=== PATIENT | female | born 1975 | race Caucasian/White ===

== ENCOUNTER 2017-01-04 10:36 | Emergency (ER) | payer OTHER ==
[~2017-01-04] VITALS: Ht 154.9 cm; Wt 56.8 kg
[~2017-01-04 10:36] MED LIST: ALBU2.5V14 NEB; CHOL100013 PO; CIPR500T PO; CIPR500T94 PO; CLON0.5T PO; CYCL10TA2 PO; FLUO10CA13 PO; HYDR-2666 PO; HYDR-971 PO; METR500T PO; ONDA4TAB12 PO; OXYC1TAB9 PO
[2017-01-04 11:17] VITALS: BP 119/95
--- NOTE | 2017-01-04 11:33 | ED.ADGEN ---
Past History Past Medical History: Anxiety, Asthma, Depression, Other Past Surgical History: Appendectomy, Hysterectomy, Other Alcohol Use: Rarely Drug Use: None Adult General Chief Complaint Chief Complaint Left low back pain HPI HPI Patient is a 42 year old female who presents with left low back pain. Patient states the pain started 2 days ago after she performs yoga. She does not recall any injury but then the pain worsened in her left lower back. Pain radiates into her left buttock, burning with urination. No fevers, no nausea or vomiting. She attempted Rufus tablets which she had on hand due to a recent pancreatitis flareup which did not resolve her symptoms. No bowel or bladder incontinence or retention. She reported some numbness in her genitals but that resolved. She reportedly was at [facility] a week ago for possible allergic reaction to Pringles Review of Systems Review of Systems Constitutional: Denies fever or chills [] Eyes: Denies change in visual acuity, redness, or eye pain [] HENT: Denies nasal congestion or sore throat [] Respiratory: Denies cough or shortness of breath [] Cardiovascular: No additional information not addressed in HPI [] GI: Denies abdominal pain, nausea, vomiting, bloody stools or diarrhea [] : History of present illness [] Musculoskeletal: Per history of present illness Integument: Denies rash or skin lesions [] Neurologic: Denies headache, focal weakness or sensory changes [] Endocrine: Denies polyuria or polydipsia [] Current Medications Current Medications Current Medications Medications (Trade) Dose Ordered Sig/Samantha Start Time Stop Time Status Last Admin Dose Admin Acetaminophen (Tylenol) 1,000 mg 1X ONCE 01/04/17 11:45 01/04/17 11:46 DC 01/04/17 11:57 1,000 MG Prednisone (Prednisone) 60 mg 1X ONCE 01/04/17 11:45 01/04/17 11:46 DC 01/04/17 11:58 60 MG Allergies Allergies Allergies Coded Allergies Type Severity Reaction Last Updated Verified NSAIDS (Non-Steroidal Anti-Inflamma Allergy Severe 09/10/14 Yes aspirin Allergy Severe 09/10/14 Yes Physical Exam Physical Exam Constitutional: Well developed, well nourished, appears uncomfortable HENT: Normocephalic, atraumatic, bilateral external ears normal, oropharynx moist, no oral exudates, nose normal. [] Eyes: PERRLA, EOMI, conjunctiva normal, no discharge. [] Neck: Normal range of motion, no tenderness, supple, no stridor. [] Cardiovascular:Heart rate regular with regulr rhythm, no murmur [] Lungs & Thorax: Bilateral breath sounds clear to auscultation, no wheeze or crackles Abdomen: Bowel sounds normal, soft, no tenderness Skin: Warm, dry, no erythema, no rash. [] Back: Nomidline tenderness,ttp over left SI joint Extremities: No tenderness, no cyanosis, no clubbing, ROM intact, no edema. [] Neurologic: Alert and oriented X 3, normal motor function, normal sensory function, no focal deficits noted. [] Psychologic: Odd Affect, gives peripheral information that seems irrelevant, judgement normal, mood normal. [] Current Patient Data Vital Signs Vital Signs Date Time Temp Pulse Resp B/P Pulse Ox O2 Delivery O2 Flow Rate FiO2 01/04/17 11:17 97.6 80 20 99 Room Air Lab Results Laboratory Tests Test 01/04/17 12:00 Urine Collection Type Unknown Urine Color Yellow Urine Clarity Clear Urine pH 6.0 Urine Specific [place] 1.025 Urine Protein Neg (NEG-TRACE) Urine Glucose (UA) Negmg/dL (NEG) Urine Ketones (Stick) Negmg/dL (NEG) Urine Blood Neg (NEG) Urine Nitrite Neg (NEG) Urine Bilirubin Neg (NEG) Urine Urobilinogen Dipstick 0.2mg/dL (0.2 mg/dL) Urine Leukocyte Esterase Neg (NEG) Urine RBC 0/HPF (0-2) Urine WBC 0/HPF (0-4) Urine Squamous Epithelial Cells Occ/LPF Urine Bacteria 0/HPF (0-FEW) EKG EKG [] Radiology/Procedures Radiology/Procedures Three-view study of the sacrum and coccyx History: Left sided sacral pain after injury last night Findings: No acute fracture or displacement or osteolytic process is seen. IMPRESSION: No acute fracture. [] Course & Med Decision Making Course & Med Decision Making Pertinent Labs and Imaging studies reviewed. (See chart for details) pt given prednisone and acetaminophen. No findings on urine or radiographs. I informed pt will treat with prednisone and lidoderm patch. f/u with pcp Final Impression Final Impression SI joint pain[] Problems: Dragon Disclaimer Dragon Disclaimer This electronic medical record was generated, in whole or in part, using a voice recognition dictation system. CRYSTAL ORDONEZ MD Jan 04, 2017 11:33
[2017-01-04] MEDS ORDERED: ACETAMINOPHEN 500 MG TABLET PO ONE (11:45)
[2017-01-04] MEDS ORDERED: PREDNISONE 20 MG TABLET PO ONE (11:45)
--- NOTE | 2017-01-04 11:56 | RAD ---
Three-view study of the sacrum and coccyx History: Left sided sacral pain after injury last night Findings: No acute fracture or displacement or osteolytic process is seen. IMPRESSION: No acute fracture.
[2017-01-04 12:38] LABS: BACTERIA,URINE 0 /HPF (0-FEW); BILIRUBIN,URINE NEG (NEG); CLARITY,URINE CLEAR; COLOR,URINE YELLOW; GLUCOSE,URINE NEG (NEG); NITRITE,URINE NEG (NEG); RBC,URINE 0 /HPF (0-2); SQUAMOUS EPITHELIAL CELL,UR OCC /LPF; UROBILINOGEN,URINE 0.2 mg/dL (0.2 mg/dL); WBC,URINE 0 /HPF (0-4)
[2017-01-04] MEDS ORDERED: LIDO700A4 TP (12:53)
[2017-01-04] MEDS ORDERED: PRED50TA PO (12:53)
[2017-01-04] MEDS ORDERED: CYCL5TAB PO (12:53)
== END 2017-01-04 12:58 | disposition home or self-care (01) ==
LOC: ER 10:36
DX: M53.3 Sacrococcygeal disorders, not elsewhere classified (principal); R30.0 Dysuria; J45.909 Unspecified asthma, uncomplicated; Z88.6 Allergy status to analgesic agent
CPT/HCPCS: 72220; 81001; 99285; J7512

== ENCOUNTER 2017-03-13 08:27 | Emergency (ER) | payer OTHER ==
[~2017-03-13] VITALS: Ht 154.9 cm; Wt 56.7 kg
[~2017-03-13 08:27] MED LIST changes: +CYCL-331 PO; -CYCL10TA2 PO; +CYCL5TAB PO; -HYDR-2666 PO; +HYDR-2758 PO; +LIDO700A4 TP; +PRED50TA PO
[2017-03-13] MEDS ORDERED: IV NORMAL SALINE 1,000ML 1,000 ML IV ONE (08:45)
[2017-03-13] MEDS ORDERED: ONDANSETRON PF 4 MG/2 ML VIAL. IV ONE (09:10)
[2017-03-13] MEDS ORDERED: DEXAMETHASONE SOD PHOS 10 MG/ML VIAL IV ONE (09:10)
[2017-03-13] MEDS ORDERED: diphenhydrAMINE 50 MG/ML VIAL IVP ONE (09:10)
[2017-03-13] MEDS ORDERED: PROMETHAZINE 25 MG/ML VIAL IV ONE ×2 (09:41→10:50)
[2017-03-13] MEDS: PROMETHAZINE 12.5 MG in IV NORMAL SALINE 50ML 50 ML IV PRN ×2 (09:43→10:52)
--- NOTE | 2017-03-13 09:56 | PHYS DOC ---
Past History Past Medical History: Asthma, Endometriosis, Migraines Past Surgical History: Appendectomy, Cholecystectomy, Hysterectomy, Oophorectomy Alcohol Use: None Drug Use: None Adult General Chief Complaint Chief Complaint: HEADACHE HPI HPI This 42-year-old lady presents with a migraine headache. She awakened with a headache this morning. The headache did not come on suddenly but gradually. She states the headache feels exactly like her migraine headaches in the past. His headache nausea and a little bit of neck discomfort. She states that she usually gets relief from ventral, Decadron, and Zofran. Review of Systems Review of Systems Constitutional: Denies fever or chills [] Eyes: Denies change in visual acuity, redness, or eye pain [] HENT: Denies nasal congestion or sore throat [] Respiratory: Denies cough or shortness of breath [] Cardiovascular: No additional information not addressed in HPI [] GI: Denies abdominal pain, nausea, vomiting, bloody stools or diarrhea [] : Denies dysuria or hematuria [] Musculoskeletal: Denies back pain or joint pain [] Integument: Denies rash or skin lesions [] Neurologic: Denies headache, focal weakness or sensory changes [] Endocrine: Denies polyuria or polydipsia [] Current Medications Current Medications Current Medications Medications (Trade) Dose Ordered Sig/Samantha Start Time Stop Time Status Last Admin Dose Admin Dexamethasone Sodium Phosphate (Decadron) 10 mg 1X ONCE 03/13/17 09:10 03/13/17 09:11 DC 03/13/17 08:57 10 MG Diphenhydramine HCl (Benadryl) 25 mg 1X ONCE 03/13/17 09:10 03/13/17 09:11 DC 03/13/17 08:58 25 MG Ondansetron HCl (Zofran) 4 mg 1X ONCE 03/13/17 09:10 03/13/17 09:11 DC 03/13/17 08:57 4 MG Promethazine HCl 12.5 mg/Sodium Chloride 50.5 ml @ 101 mls/hr PRN Q6HRS PRN 03/13/17 09:45 UNV Sodium Chloride 1,000 ml @ 1,000 mls/hr 1X ONCE 03/13/17 08:45 03/13/17 09:44 03/13/17 08:45 1,000 MLS/HR Allergies Allergies Allergies Coded Allergies Type Severity Reaction Last Updated Verified NSAIDS (Non-Steroidal Anti-Inflamma Allergy Severe 03/13/17 Yes aspirin Allergy Severe 03/13/17 Yes Physical Exam Physical Exam Constitutional: Well developed, well nourished, no acute distress, non-toxic appearance. [] HENT: Normocephalic, atraumatic, bilateral external ears normal, oropharynx moist, no oral exudates, nose normal. [] Eyes: PERRLA, EOMI, conjunctiva normal, no discharge. [] Neck: Normal range of motion, minimal tenderness in the paravertebral musculature in the neck., supple, no stridor. [] Cardiovascular:Heart rate regular rhythm, no murmur [] Lungs & Thorax: Bilateral breath sounds clear to auscultation [] Abdomen: Bowel sounds normal, soft, no tenderness, no masses, no pulsatile masses. [] Skin: Warm, dry, no erythema, no rash. [] Back: No tenderness, no CVA tenderness. [] Extremities: No tenderness, no cyanosis, no clubbing, ROM intact, no edema. [] Neurologic: Alert and oriented X 3, normal motor function, normal sensory function, no focal deficits noted. [] Psychologic: Affect normal, judgement normal, mood normal. [] Current Patient Data Vital Signs Vital Signs Date Time Temp Pulse Resp B/P (MAP) Pulse Ox O2 Delivery O2 Flow Rate FiO2 03/13/17 08:35 98.2 78 18 100 Room Air EKG EKG [] Radiology/Procedures Radiology/Procedures [] Impressions: Migraine headache Course & Med Decision Making Course & Med Decision Making Patient was given a liter of normal saline. She was given 10 of Decadron IV and 12.5 Phenergan IV Benadryl 25 mg IV and Zofran 4 mg IV she was further given another 12.5 Phenergan, she was also given Imitrex subcutaneous On this regimen she felt better and was discharged structure rest sleep and follow-up with her doctor tomorrow [] Dragon Disclaimer Dragon Disclaimer This chart was dictated in whole or in part using Voice Recognition software in a busy, high-work load, and often noisy Emergency Department environment. It may contain unintended and wholly unrecognized errors or omissions. Departure Departure: Referrals: MICHAEL SCHAEFER APRN (PCP) MACIEJ GUDINO MD Mar 13, 2017 09:56
--- NOTE | 2017-03-13 10:31 | RAD ---
CT head without contrast History: Headache, blurry vision. Comparison: 10/19/2014. Procedure: Axial images are obtained of the head from the skull base through the vertex without IV contrast. Findings: The ventricles and sulci are normal for the patient's age. No mass-effect, intracranial mass, midline shift, hemorrhage or obvious acute infarction is identified. Basilar cisterns are patent. Bone windows demonstrate no significant calvarial abnormality. The visualized paranasal sinuses appear clear. Impression: 1. No acute intracranial process. PQRS Compliance Statement: One or more of the following individualized dose reduction techniques were utilized for this examination: 1. Automated exposure control 2. Adjustment of the mA and/or kV according to patient size 3. Use of iterative reconstruction technique faint
[2017-03-13] MEDS ORDERED: PROMETHAZINE 12.5 MG in IV NORMAL SALINE 50ML 50 ML IV PRN (10:45)
[2017-03-13] MEDS ORDERED: IV NORMAL SALINE 50ML 50 ML ONE (10:50)
[2017-03-13] MEDS ORDERED: SUMAtriptan. 6 MG/0.5 ML VIAL SQ ONE (11:10)
[2017-03-13 11:25] VITALS: BP 113/78
== END 2017-03-13 11:26 | disposition home or self-care (01) ==
LOC: ER 08:27
DX: G43.909 Migraine, unspecified, not intractable, without status migrainosus (principal); J45.909 Unspecified asthma, uncomplicated; Z88.6 Allergy status to analgesic agent; Z88.8 Allergy status to other drugs, medicaments and biological substances
CPT/HCPCS: 70450; 96361; 96372; 96374; 96375; 96376; 99284; J1100; J1200; J2405; J2550; J3030; J7030

== ENCOUNTER 2017-11-24 13:49 | Emergency (ER) | payer OTHER ==
[~2017-11-24] VITALS: Ht 154.9 cm; Wt 59.9 kg
[2017-11-24] MEDS ORDERED: MORPHINE SULFATE 4 MG/ML DISP.SYRIN. IM ONE (14:30)
--- NOTE | 2017-11-24 14:35 | PHYS DOC ---
Past History Past Medical History: Asthma, Endometriosis, Migraines Past Surgical History: Appendectomy, Cholecystectomy, Hysterectomy, Oophorectomy Alcohol Use: Sober Drug Use: None Adult General Chief Complaint Chief Complaint: Neck Pain HPI HPI 42-year-old female patient complaining of left-sided neck pain since she woke up yesterday morning as a constant pain that getting worse with movements of her head. Patient denies focal neuro deficit, fever and chills, injury. Patient states she had the same pain previously. Patient states she took pain medication and Flexeril without improvement of her pain. Review of Systems Review of Systems Constitutional: Denies fever or chills [] Eyes: Denies change in visual acuity, redness, or eye pain [] HENT: Denies nasal congestion or sore throat [] Respiratory: Denies cough or shortness of breath [] Cardiovascular: No additional information not addressed in HPI [] GI: Denies abdominal pain, nausea, vomiting, bloody stools or diarrhea [] : Denies dysuria or hematuria [] Musculoskeletal: Denies back pain or joint pain [] Integument: Denies rash or skin lesions [] Neurologic: Denies headache, focal weakness or sensory changes [] Endocrine: Denies polyuria or polydipsia [] All other systems were reviewed and found to be within normal limits, except as documented in this note. Current Medications Current Medications Current Medications Medications (Trade) Dose Ordered Sig/[facility] Start Time Stop Time Status Last Admin Dose Admin Morphine Sulfate (Morphine 4mg Syringe) 4 mg 1X ONCE 11/24/17 14:30 11/24/17 14:31 UNV Allergies Allergies Allergies Coded Allergies Type Severity Reaction Last Updated Verified NSAIDS (Non-Steroidal Anti-Inflamma Allergy Severe 03/13/17 Yes aspirin Allergy Severe 03/13/17 Yes Physical Exam Physical Exam Constitutional: Well developed, well nourished,mild distress, non-toxic appearance. [] HENT: Normocephalic, atraumatic, bilateral external ears normal, oropharynx moist, no oral exudates, nose normal. [] Eyes: PERRLA, EOMI, conjunctiva normal, no discharge. [] Neck: Limited range of motion of neck because of pain, muscle spasm in the cervical area without midline tenderness Cardiovascular:Heart rate regular rhythm, no murmur [] Lungs & Thorax: Bilateral breath sounds clear to auscultation [] Skin: Warm, dry, no erythema, no rash. [] Back: No tenderness, no CVA tenderness. [] Extremities: No tenderness, no cyanosis, no clubbing, ROM intact, no edema. [] Neurologic: Alert and oriented X 3, normal motor function, normal sensory function, no focal deficits noted. [] Psychologic: Affect normal, judgement normal, mood normal. [] Current Patient Data Vital Signs Vital Signs Date Time Temp Pulse Resp B/P (MAP) Pulse Ox O2 Delivery O2 Flow Rate FiO2 11/24/17 14:23 98.0 80 18 99 Room Air EKG EKG [] Radiology/Procedures Radiology/Procedures [] Course & Med Decision Making Course & Med Decision Making Evaluation of patient in ER showed 42-year-old female patient with complaining of left-sided neck pain since yesterday without injury. Patient had history of previous cervical muscle pain. She had left cervical muscle spasm without neurovascular deficit or midline tenderness. Patient had morphine in ER and felt better. Plan discharge patient home with diagnosis of cervical myofascial strain. She instructed to apply ice on her neck and continue home Flexeril. Dragon Disclaimer Dragon Disclaimer This electronic medical record was generated, in whole or in part, using a voice recognition dictation system. Departure Departure: Impression: Primary Impression: Acute cervical myofascial strain Disposition: HOME, SELF-CARE (At 1530) Condition: IMPROVED Referrals: MICHAEL SCHAEFER APRN (PCP) Patient Instructions: Cervical Strain and Sprain with [facility] Additional Instructions: Apply ice on the affected area Follow-up with your primary care physician in 3-5 days Return to ER if not getting better Scripts Ondansetron (ZOFRAN ODT) 4 Mg Tab.rapdis 1 TAB SL Q8HRS, #15 TAB Prov: MARQUITA EUGENE MD 11/24/17 Hydrocodone Bit/Acetaminophen (NORCO 5-325 TABLET) 1 Each Tablet 1 TAB PO PRN Q6HRS Y for PAIN, #8 TAB 0 Refills Prov: MARQUITA EUGENE MD 11/24/17 MARQUITA EUGENE MD Nov 24, 2017 14:35
[2017-11-24] MEDS ORDERED: ONDANSETRON ODT 4 MG TAB.RAPDIS PO ONE (15:30)
[2017-11-24] MEDS ORDERED: HYDR-971 PO (15:32)
[2017-11-24] MEDS ORDERED: ONDA4TAB10 SL (15:32)
[2017-11-24 15:42] VITALS: BP 120/76
== END 2017-11-24 15:44 | disposition home or self-care (01) ==
LOC: ER 13:49
DX: S16.1XXA Strain of muscle, fascia and tendon at neck level, initial encounter (principal); J45.909 Unspecified asthma, uncomplicated; G43.909 Migraine, unspecified, not intractable, without status migrainosus; Z88.6 Allergy status to analgesic agent; X58.XXXA Exposure to other specified factors, initial encounter; Y93.89 Activity, other specified; Y99.8 Other external cause status; Y92.89 Other specified places as the place of occurrence of the external cause
CPT/HCPCS: 96372; 99283; J2270; Q0162

== ENCOUNTER 2017-12-22 13:58 | Emergency (ER) | payer OTHER ==
[~2017-12-22] VITALS: Ht 154.9 cm; Wt 59.0 kg
[~2017-12-22 13:58] MED LIST changes: +ONDA4TAB10 SL
[2017-12-22] MEDS ORDERED: IV NORMAL SALINE 1,000ML 1,000 ML IV SCH (14:30)
[2017-12-22] MEDS ORDERED: FAMOTIDINE 20 MG/2 ML VIAL IVP ONE (14:30)
[2017-12-22] MEDS ORDERED: HYDROcodone/APAP 5/325MG 1 TAB TABLET PO ONE (15:15)
[2017-12-22 15:41] VITALS: BP 123/82
[2017-12-22] MEDS ORDERED: HYDR25TA PO (15:41)
--- NOTE | 2017-12-22 15:42 | PHYS DOC ---
Past History Past Medical History: Asthma, Endometriosis, Migraines Past Surgical History: Appendectomy, Cholecystectomy, Hysterectomy, Oophorectomy Alcohol Use: Sober Drug Use: None Adult General Chief Complaint Chief Complaint: allergic reaction HPI HPI 42-year-old female patient with history of anxiety and previous episodes of allergic reaction and states she ate at [employer] and felt facial itching and shortness of breath and throat swelling like her previous episodes of allergic reaction. Patient states on her way to come to the hospital she had to push hard on break avoid of accessory fifth pain in the back of her head because of history of previous neck pain. Patient states she has appointment with physician in 4 days for her chronic pain. Patient denies focal neuro deficit, fever and chills, nausea vomiting, chest pain, cough and congestion, rash. Patient states she had history of anxiety and episodes of previous panic attack. Review of Systems Review of Systems Constitutional: Denies fever or chills [] Eyes: Denies change in visual acuity, redness, or eye pain [] HENT: Denies nasal congestion or sore throat [] Respiratory: Denies cough , reports shortness of breath [] Cardiovascular: No additional information not addressed in HPI [] GI: Denies abdominal pain, nausea, vomiting, bloody stools or diarrhea [] : Denies dysuria or hematuria [] Musculoskeletal: Denies back pain or joint pain, reports neck pain] Integument: Denies rash or skin lesions , reports itching[] Neurologic: Denies headache, focal weakness or sensory changes [] Endocrine: Denies polyuria or polydipsia [] All other systems were reviewed and found to be within normal limits, except as documented in this note. Current Medications Current Medications Current Medications Medications (Trade) Dose Ordered Sig/Samantha Start Time Stop Time Status Last Admin Dose Admin Acetaminophen/ Hydrocodone Bitart (Lortab 5/325) 1 tab 1X ONCE 12/22/17 15:15 12/22/17 15:16 DC Famotidine (Pepcid Vial) 20 mg 1X ONCE 12/22/17 14:30 12/22/17 14:31 DC 12/22/17 14:44 20 MG Sodium Chloride 1,000 ml @ 1,000 mls/hr Q1H 12/22/17 14:30 12/22/17 15:29 DC 12/22/17 14:44 1,000 MLS/HR Allergies Allergies Allergies Coded Allergies Type Severity Reaction Last Updated Verified NSAIDS (Non-Steroidal Anti-Inflamma Allergy Severe 03/13/17 Yes aspirin Allergy Severe 03/13/17 Yes Physical Exam Physical Exam Constitutional: Well nourished, mild distress, non-toxic appearance. [] HENT: Normocephalic, atraumatic, bilateral external ears normal, oropharynx moist, no oral exudates, nose normal. [] Eyes: PERRLA, EOMI, conjunctiva normal, no discharge. [] Neck: Normal range of motion, no tenderness, supple, no stridor. [] Cardiovascular:Heart rate regular rhythm, no murmur [] Lungs & Thorax: Bilateral breath sounds clear to auscultation [] Abdomen: Bowel sounds normal, soft, no tenderness, no masses, no pulsatile masses. [] Skin: Warm, dry, no erythema, no rash. [] Back: No tenderness, no CVA tenderness. [] Extremities: No tenderness, no cyanosis, no clubbing, ROM intact, no edema. [] Neurologic: Alert and oriented X 3, normal motor function, normal sensory function, no focal deficits noted. [] Psychologic: Anxious, judgement normal, mood normal. [] Current Patient Data Vital Signs Vital Signs Date Time Temp Pulse Resp B/P (MAP) Pulse Ox O2 Delivery O2 Flow Rate FiO2 12/22/17 14:12 98.5 102 22 99 Room Air EKG EKG [] Radiology/Procedures Radiology/Procedures [] Course & Med Decision Making Course & Med Decision Making Evaluation of patient in ER showed 42-year-old female patient with history of anxiety complaining of allergic reaction after eating new food. She did not have rash or respiratory distress or hypoxia or swelling of tongue or throat. Patient treated with IV fluid and Pepcid and asking for pain medication regarding her chronic neck pain. Patient treated with 1 dose of [place] and instructed to follow with her primary care physician as a scheduled in 4 days. Dragon Disclaimer Dragon Disclaimer This electronic medical record was generated, in whole or in part, using a voice recognition dictation system. Departure Departure: Impression: Primary Impression: Itching Additional Impressions: Anxiety Chronic cervical pain Disposition: HOME, SELF-CARE (At 1536) Condition: STABLE Referrals: MICHAEL SCHAEFER APRN (PCP) Patient Instructions: Anxiety and Panic Attacks, Itching-Brief, Soft Tissue Injury of the Neck Additional Instructions: Drink plenty of liquids Follow-up with your primary care physician in 3-5 days Return to ER if not getting better Scripts Hydroxyzine Hcl (HYDROXYZINE HCL) 25 Mg Tablet 1 TAB PO TID, #12 TAB Prov: MARQUITA EUGENE MD 12/22/17 Problem Qualifiers MARQUITA EUGENE MD Dec 22, 2017 15:42
== END 2017-12-22 15:51 | disposition home or self-care (01) ==
LOC: ER 13:58
DX: L29.9 Pruritus, unspecified (principal); F41.9 Anxiety disorder, unspecified; G89.29 Other chronic pain; G43.909 Migraine, unspecified, not intractable, without status migrainosus; J45.909 Unspecified asthma, uncomplicated; Z88.6 Allergy status to analgesic agent
CPT/HCPCS: 96361; 96374; 99284; S0028; J7030

== ENCOUNTER 2018-03-03 20:59 | Inpatient (IN) | payer OTHER ==
[~2018-03-03] VITALS: Ht 154.9 cm; Wt 65.8 kg
[~2018-03-03 20:59] MED LIST changes: +HYDR25TA PO; +OXYC-411 PO; -OXYC1TAB9 PO
--- NOTE | 2018-03-03 21:08 | ED.ADGEN ---
Past History Past Medical History: Asthma, Endometriosis, Migraines Past Surgical History: Appendectomy, Cholecystectomy, Hysterectomy, Oophorectomy Alcohol Use: Sober Drug Use: None Adult General Chief Complaint Chief Complaint ".. I get migraines.. but this one seems different ... its a 06/04... it been going on 3 days...".." I ve gotten bad migraines before.. I ve had CT's, MRI, Spinal taps... but noting was ever found.. I was why the [employer] .. probably retired me... " HPI HPI Patient is a 43 year old female who presents with above hx and complaints of generalized migraine like headache the last three days.. No travel or specific ill contacts. No fever or chills. No hx of trauma. Pt. normally follows at [facility]. Pt. reports some nausea. Pt. report s no pattern to prior migraine headaches. Pt. rates headache as 06/04. Home meds have not helped. Review of Systems Review of Systems Constitutional: Denies fever or chills [] Eyes: Denies change in visual acuity, redness, or eye pain [] HENT: Denies nasal congestion or sore throat [] Respiratory: Denies cough or shortness of breath [] Cardiovascular: No additional information not addressed in HPI [] GI: Denies abdominal pain, nausea, vomiting, bloody stools or diarrhea [] : Denies dysuria or hematuria [] Musculoskeletal: Denies back pain or joint pain [] Integument: Denies rash or skin lesions [] Neurologic: Complains of headache. Denies, focal weakness or sensory changes [] Endocrine: Denies polyuria or polydipsia [] All other systems were reviewed and found to be within normal limits, except as documented in this note. Family History Family History Non-contributory Current Medications Current Medications Current Medications Medications (Trade) Dose Ordered Sig/Samantha Start Time Stop Time Status Last Admin Dose Admin Diphenhydramine HCl (Benadryl) 50 mg 1X ONCE 03/03/18 22:30 03/03/18 22:33 DC 03/03/18 23:35 50 MG Lactated Ringer's 1,000 ml @ 1,000 mls/hr 1X ONCE 03/03/18 21:30 03/03/18 22:29 DC 03/03/18 22:24 1,000 MLS/HR Lorazepam (Ativan) 2 mg 1X ONCE 03/03/18 23:00 03/03/18 23:01 DC 03/03/18 23:35 2 MG Morphine Sulfate (Morphine 2mg Syringe) 2 mg 1X ONCE 03/03/18 23:15 03/03/18 23:17 DC Morphine Sulfate (Morphine 4mg Syringe) 2 mg PRN Q2HR PRN 03/04/18 01:00 03/05/18 00:59 03/04/18 01:05 2 MG Ondansetron HCl (Zofran Odt) 8 mg 1X ONCE 03/03/18 21:30 03/03/18 21:54 DC 03/03/18 22:24 8 MG Sodium Chloride 50 ml @ As Directed STK-MED ONCE 03/03/18 22:14 03/03/18 22:15 DC Sumatriptan Succinate (Imitrex) 6 mg 1X ONCE 03/03/18 21:30 03/03/18 21:54 DC 03/03/18 22:24 6 MG Valproic Acid (Depacon) 500 mg STK-MED ONCE 03/03/18 22:15 03/03/18 22:16 DC Valproic Acid 500 mg/Sodium Chloride 55 ml @ 55 mls/hr Q8HRS 03/04/18 06:00 See Nursing for home meds Allergies Allergies Allergies Coded Allergies Type Severity Reaction Last Updated Verified NSAIDS (Non-Steroidal Anti-Inflamma Allergy Severe 03/13/17 Yes aspirin Allergy Severe 03/13/17 Yes metoclopramide Allergy Mild anxiety 03/03/18 Yes prochlorperazine Allergy Mild anxiety 03/03/18 Yes Physical Exam Physical Exam Constitutional: , Moderately acute distress, non-toxic appearance. [] HENT: Normocephalic, atraumatic, bilateral external ears normal, oropharynx moist, no oral exudates, nose normal. []No temporal artery tenderness. Eyes: PERRLA, EOMI, conjunctiva normal, no discharge. [] No appreciable field deficits. Fundus benign. Neck: Normal range of motion, no tenderness, supple, no stridor. [] Cardiovascular: Bradycardia Heart rate regular rhythm, no murmur [] Lungs & Thorax: Bilateral breath sounds equal with scattered wheezes on auscultation [] Abdomen: Bowel sounds normal, soft, no tenderness, no masses, no pulsatile masses. Multiple abdomen scars. Skin: Warm, dry, no erythema, no rash. [] Back: No tenderness, no CVA tenderness. [] Extremities: No tenderness, no cyanosis, no clubbing, ROM intact, no edema. [] Neurologic: Alert and oriented X 3, normal motor function, normal sensory function, no focal deficits noted. []DTRs +2 at patella and brachial. Distal vibratory 128 intact. Wellness Manager equal. No drift. Psychologic: Affect anxious, judgement normal, mood depressed. Current Patient Data Vital Signs Vital Signs Date Time Temp Pulse Resp B/P (MAP) Pulse Ox O2 Delivery O2 Flow Rate FiO2 03/03/18 21:00 97.7 90 18 100 Room Air Lab Results Laboratory Tests Test 03/03/18 21:55 03/03/18 22:16 03/03/18 23:14 White Blood Count 6.1 x10^3/uL (4.0-11.0) Red Blood Count 4.02 x10^6/uL (3.50-5.40) Hemoglobin 12.4 g/dL (12.0-15.5) Hematocrit 37.3 % (36.0-47.0) Mean Corpuscular Volume 93 fL (79-100) Mean Corpuscular Hemoglobin 31 pg (25-35) Mean Corpuscular Hemoglobin Concent 33 g/dL (31-37) Red Cell Distribution Width 13.4 % (11.5-14.5) Platelet Count 274 x10^3/uL (140-400) Neutrophils (%) (Auto) 75 % (31-73) H Lymphocytes (%) (Auto) 16 % (24-48) L Monocytes (%) (Auto) 8 % (0-9) Eosinophils (%) (Auto) 1 % (0-3) Basophils (%) (Auto) 1 % (0-3) Neutrophils # (Auto) 4.5 x10^3uL (1.8-7.7) Lymphocytes # (Auto) 1.0 x10^3/uL (1.0-4.8) Monocytes # (Auto) 0.5 x10^3/uL (0.0-1.1) Eosinophils # (Auto) 0.1 x10^3/uL (0.0-0.7) Basophils # (Auto) 0.0 x10^3/uL (0.0-0.2) Erythrocyte Sedimentation Rate 24 (0-25) Prothrombin Time 9.3 SEC (9.4-11.4) L Prothrombin Time INR 0.9 (0.9-1.1) PTT 22 SEC (23-33) L Sodium Level 141 mmol/L (136-145) Potassium Level 3.9 mmol/L (3.5-5.1) Chloride Level 104 mmol/L (98-107) Carbon Dioxide Level 27 mmol/L (21-32) Anion Gap 10 (6-14) Blood Urea Nitrogen 11 mg/dL (7-20) Creatinine 0.7 mg/dL (0.6-1.0) Estimated GFR (Cockcroft-Gault) 91.8 Glucose Level 108 mg/dL (70-99) H Calcium Level 8.5 mg/dL (8.5-10.1) Magnesium Level 2.1 mg/dL (1.8-2.4) Creatine Kinase 43 U/L (26-192) Creatine Kinase MB (Mass) < 0.5 ng/mL (0.0-3.6) Creatine Kinase MB Relative Index 1.2 % (0-4) Troponin I Quantitative < 0.017 ng/mL (0-0.055) Urine Collection Type Unknown Urine Color Yellow Urine Clarity Clear Urine pH 6.5 Urine Specific [place] 1.010 Urine Protein Neg (NEG-TRACE) Urine Glucose (UA) Neg mg/dL (NEG) Urine Ketones (Stick) Neg mg/dL (NEG) Urine Blood Neg (NEG) Urine Nitrite Neg (NEG) Urine Bilirubin Neg (NEG) Urine Urobilinogen Dipstick 0.2 mg/dL (0.2 mg/dL) Urine Leukocyte Esterase Trace (NEG) Urine RBC 0 /HPF (0-2) Urine WBC Occ /HPF (0-4) Urine Squamous Epithelial Cells Occ /LPF Urine Bacteria 0 /HPF (0-FEW) Urine Opiates Screen Neg (NEG) Urine Methadone Screen Neg (NEG) Urine Barbiturates Neg (NEG) Urine Phencyclidine Screen Neg (NEG) Urine Amphetamine/Methamphetamine Neg (NEG) Urine Benzodiazepines Screen Neg (NEG) Urine Cocaine Screen Neg (NEG) Urine Cannabinoids Screen Neg (NEG) Urine Ethyl Alcohol Neg (NEG) POC Troponin I 0.00 ng/ml (<0.08) EKG EKG My interpretation of EKG shows sinus rate of 68 no acute morphology. [] Radiology/Procedures Radiology/Procedures My interpretation of CT of head shows no shift, mass, edema, bleed, or fracture. [] Course & Med Decision Making Course & Med Decision Making Pertinent Labs and Imaging studies reviewed. (See chart for details). Discussed presentation, testing and tx plan with Dr. Marina. Admit with Neuro and Cardiology consults. After patient received Imitrex 6 mg subcutaneous and started on valproic acid complaints of chest pain that radiated to her jaw.- EKG ordered and Trop's Pt. still some angina like complaints. Lt neck and chest at 0040 min. Will admit for cardiac eval. [] Final Impression Final Impression 1. Hx. Migraines[] 2. HTN 3. CP - with Imitrex 4. Anxiety Dragon Disclaimer Dragon Disclaimer This electronic medical record was generated, in whole or in part, using a voice recognition dictation system. GRISEL LIPSCOMB MD Mar 03, 2018 21:07
[2018-03-03] MEDS ORDERED: SUMAtriptan SUCC 6 MG/0.5 ML VIAL SQ ONE (21:30)
[2018-03-03] MEDS ORDERED: IV RINGERS SOLUTION,LACTATED 1,000 ML IV ONE (21:30)
[2018-03-03] MEDS ORDERED: ONDANSETRON ODT 4 MG TAB.RAPDIS PO ONE (21:30)
[2018-03-03] MEDS ORDERED: VALPROATE SODIUM 500 MG in IV NORMAL SALINE 50ML 50 ML IV ONE (22:00)
[2018-03-03] MEDS ORDERED: VALPROATE SODIUM 500 MG in IV NORMAL SALINE 50ML 50 ML IV SCH (22:00)
[2018-03-03] MEDS ORDERED: IV NORMAL SALINE 50ML 50 ML ONE (22:14)
[2018-03-03] MEDS ORDERED: VALPROATE SODIUM 500 MG/5 ML VIAL IV ONE (22:15)
[2018-03-03 22:19] LABS: BASO % 1 % (0-3); EOS # 0.1 x10^3/uL (0.0-0.7); EOS % 1 % (0-3); HEMATOCRIT 37.3 % (36.0-47.0); HEMOGLOBIN 12.4 g/dL (12.0-15.5); LYMPH % 16 % (24-48); MEAN CORPUSCULAR HEMOGLOBIN 31 pg (25-35); MEAN CORPUSCULAR HGB CONC 33 g/dL (31-37); MEAN CORPUSCULAR VOLUME 93 fL (79-100); MONO # 0.5 x10^3/uL (0.0-1.1); MONO % 8 % (0-9); NEUT # 4.5 x10^3uL (1.8-7.7); NEUT % 75 % (31-73); PLATELET COUNT 274 x10^3/uL (140-400); RED BLOOD COUNT 4.02 x10^6/uL (3.50-5.40); RED CELL DISTRIBUTION WIDTH 13.4 % (11.5-14.5); WHITE BLOOD COUNT 6.1 x10^3/uL (4.0-11.0)
[2018-03-03 22:23] LABS: CALCIUM 8.5 mg/dL (8.5-10.1); CREATININE 0.7 mg/dL (0.6-1.0); GFR 91.8; MAGNESIUM 2.1 mg/dL (1.8-2.4); POTASSIUM 3.9 mmol/L (3.5-5.1)
--- NOTE | 2018-03-03 22:23 | RAD ---
CT HEAD WO CONTRAST Indication: Headache x3 days. No prior injury or surgery Exposure: One or more of the following individualized dose reduction techniques were utilized for this examination: 1. Automated exposure control 2. Adjustment of the mA and/or kV according to patient size 3. Use of iterative reconstruction technique. Comparison: None are available. Contrast: None FINDINGS: Posterior fossa is unremarkable. No evidence of acute intracranial hemorrhage or abnormal extra-axial fluid collection. No evidence of mass effect or midline shift. Ventricles are symmetric in size and configuration. Reese-white matter distinction is intact. Visualized orbits are unremarkable. Visualized paranasal sinuses and mastoids are clear. No acute calvarial abnormality. Impression: No acute intracranial hemorrhage or mass effect Electronically signed by: Lewis Almonte MD (03/03/2018 10:20 PM) [facility]
[2018-03-03] MEDS ORDERED: diphenhydrAMINE 50 MG/ML VIAL IVP ONE (22:30)
[2018-03-03 22:42] LABS: AMPHETAMINE/METHAMPHETAMINE NEG (NEG); BARBITURATES NEG (NEG); BENZODIAZEPINES NEG (NEG); CANNABINOIDS NEG (NEG); COCAINE NEG (NEG); METHADONE NEG (NEG); OPIATES NEG (NEG); PHENCYCLIDINE NEG (NEG)
[2018-03-03 22:45] LABS: BACTERIA,URINE 0 /HPF (0-FEW); BILIRUBIN,URINE NEG (NEG); CLARITY,URINE CLEAR; COLOR,URINE YELLOW; GLUCOSE,URINE NEG (NEG); NITRITE,URINE NEG (NEG); RBC,URINE 0 /HPF (0-2); SQUAMOUS EPITHELIAL CELL,UR OCC /LPF; UROBILINOGEN,URINE 0.2 mg/dL (0.2 mg/dL); WBC,URINE OCC /HPF (0-4)
[2018-03-03] MEDS ORDERED: LORazepam 2 MG/ML VIAL IV ONE (23:00)
[2018-03-03] MEDS ORDERED: MORPHINE SULFATE 2 MG/ML DISP.SYRIN. IV ONE (23:15)
--- NOTE | 2018-03-03 23:22 | EKG ---
[address] [address] Test Date: 2018-03-03 Test Time: 23:11:01 Pat Name: ABIDA CHINCHILLA Department: Room: Gender: F Web Design Intern: JANE : 1975 Requested By: GRISEL LIPSCOMB Order Number: [id number] Reading MD: Measurements Intervals [place] Rate: 68 P: 42 OR: 158 QRS: 45 QRSD: 86 T: 57 QT: 368 QTc: 396 Interpretive Statements SINUS RHYTHM NO SPECIFIC ECG ABNORMALITIES RI6.01 No previous ECG available for comparison
[2018-03-03 23:34] LABS: SEDIMENTATION RATE 24 (0-25)
[2018-03-03] MEDS: VALPROATE SODIUM 500 MG in IV NORMAL SALINE 50ML 50 ML IV SCH (23:38)
[2018-03-03] MEDS ORDERED: MORPHINE SULFATE 4 MG/ML DISP.SYRIN. IV ONE (23:45)
[2018-03-03] MEDS ORDERED: MORPHINE SULFATE 4 MG/ML DISP.SYRIN. ONE (23:49)
[2018-03-04] MEDS: MORPHINE SULFATE 4 MG/ML DISP.SYRIN. IV PRN ×9 (01:05→23:21)
[2018-03-04 02:15] VITALS: BP 145/92
--- NOTE | 2018-03-04 02:20 | NUR ---
Pt was admitted from ER to [address] [place] [address] via [facility], accompanied by EMS & nursing staff. Pt self transferred from [facility] to bed independently, steady gait noted. Admission assessment completed. VSS. Pt placed on Telemetry, SR noted on monitor. Pt here for migraine/headache and chest pain. Pt stated that pain different for her normal headaches that she gets, rating it a 8/10. Pt states that pain starts in the base of her neck and radiates up to the top of her head. Pt was receiving Depacon IV for her headache in the ER when she developed chest pain. Pt has hx of anxiety, which "did not help the situation." Health history and home medications reviewed with pt. SCDs for VTE. Pt UTD on pneumonia vaccine. Cardio & Neuro consulted. Pt lives at home with and 2 daughters. Pt was given written information regarding hospital policies, unit procedures and contact persons. Valuables were checked and left at bedside. Call light within reach.
[2018-03-04] MEDS ORDERED: POLY17PO5 PO (04:41)
[2018-03-04] MEDS ORDERED: ALBU8.5H8 INH (04:41)
[2018-03-04] MEDS ORDERED: CLON1TAB PO (04:41)
[2018-03-04] MEDS ORDERED: [UNRECOGNIZED DRUG - CODE] PO (04:41)
[2018-03-04] MEDS ORDERED: FLUO40CA9 PO (04:41)
[2018-03-04] MEDS ORDERED: PROM25TA10 PO (04:41)
[2018-03-04] MEDS ORDERED: GABA-585 PO (04:55)
[2018-03-04 05:40] VITALS: BP 114/77
[2018-03-04 07:15] LABS: BASO % 0 % (0-3); EOS % 0 % (0-3); HEMATOCRIT 36.3 % (36.0-47.0); HEMOGLOBIN 12.3 g/dL (12.0-15.5); LYMPH # 0.7 x10^3/uL (1.0-4.8); LYMPH % 7 % (24-48); MEAN CORPUSCULAR HEMOGLOBIN 31 pg (25-35); MEAN CORPUSCULAR HGB CONC 34 g/dL (31-37); MEAN CORPUSCULAR VOLUME 91 fL (79-100); MONO # 0.6 x10^3/uL (0.0-1.1); MONO % 6 % (0-9); NEUT # 8.9 x10^3uL (1.8-7.7); NEUT % 87 % (31-73); PLATELET COUNT 292 x10^3/uL (140-400); RED BLOOD COUNT 4.01 x10^6/uL (3.50-5.40); RED CELL DISTRIBUTION WIDTH 13.3 % (11.5-14.5); WHITE BLOOD COUNT 10.2 x10^3/uL (4.0-11.0)
[2018-03-04 07:25] LABS: CREATININE 0.7 mg/dL (0.6-1.0); GFR 91.8; POTASSIUM 4.4 mmol/L (3.5-5.1)
[2018-03-04 08:26] LABS: % LYMPHS 7 % (24-48); % METAS 1 % (0-0); % MONOS 2 % (0-10); % SEGS 90 % (35-66); TOXIC GRANULATION SLIGHT
[2018-03-04 08:27] LABS: PLT ESTIMATE ADEQUATE (ADEQUATE); POLYCHROMASIA SLIGHT
[2018-03-04 11:30] VITALS: BP 103/67
[2018-03-04] MEDS ORDERED: ALBUTEROL SULFATE 8GM INHALER. INH PRN (14:00)
[2018-03-04] MEDS: VALPROATE SODIUM 500 MG in IV NORMAL SALINE 50ML 50 ML IV SCH ×2 (14:00→20:28)
--- NOTE | 2018-03-04 14:05 | NUR ---
Nursing Note: Maty held this afternoon per Dr. Marina.
[2018-03-04] MEDS ORDERED: tiZANidine 4 MG TABLET. PO PRN (14:15)
[2018-03-04] MEDS ORDERED: ALBUTEROL SULFATE 2.5 MG/3 ML NEBU. NEB PRN (14:15)
[2018-03-04] MEDS: GABAPENTIN 100 MG CAPSULE. PO SCH ×2 (14:26→20:24)
[2018-03-04] MEDS: clonazePAM 1 MG TABLET PO SCH ×2 (14:26→20:23)
[2018-03-04] MEDS: BUTALB/APAP/CAFEIN 50/325/40MG TABLET. PO PRN (14:26)
[2018-03-04] MEDS: diphenhydrAMINE 50 MG/ML VIAL IVP PRN ×2 (14:27→20:24)
[2018-03-04 15:31] VITALS: BP 122/80
[2018-03-04 19:44] VITALS: BP 107/71
[2018-03-04 23:14] VITALS: BP 110/75
--- NOTE | 2018-03-05 00:57 | HP ---
ADMIT DATE: 03/04/2018 HISTORY OF PRESENT ILLNESS: The patient is a 43-year-old female patient, who came to the Emergency Room complaining of severe migraine that she rated about 9/10. This started about 3 days ago. She stated that she has had CT scan, MRI, and spinal taps, nothing was ever found. She retired from the [employer] and apparently started having her migraine headache since 2005 after she had her hysterectomy and what precipitated her migraine is high atmospheric pressure ____ according to her and her episodes are difficult to predict. She has been responding before to multiple modalities of treatment. Apparently, last night she was given Imitrex 6 mg subcutaneous and also was started on Depakote. She developed severe chest pain that radiated to her jaw and was admitted to rule out the possibility of myocardial infarction. PAST MEDICAL HISTORY: Significant for migraine headache as well as bronchial asthma. She has also a history of endometriosis. PAST SURGICAL HISTORY: Significant for tubal ligation, hemorrhoidectomy, cholecystectomy, breast augmentation, appendectomy, total abdominal hysterectomy and bilateral salpingo-oophorectomy as well as hemorrhoidectomy. ALLERGIES: She stated that she has severe allergy to all nonsteroidals and developed anaphylactic shock to aspirin and to all nonsteroidals. She is also allergic or intolerant to Compazine and Reglan. MEDICATIONS: She is currently on following medications: She is on promethazine 25 mg every 8 hours, tizanidine 2 mg every 8 hours, clonazepam 1 mg 3 times a day, gabapentin 200 mg 3 times a day and Prozac 40 mg once a day. She is also on polyethylene glycol 17 grams daily p.r.n. for constipation and albuterol sulfate for ProAir 1 puff every 6 hours. FAMILY HISTORY: She has one sister, who is younger and seemingly healthy. Her father is alive at the age of 74 and healthy. Mother is alive at the age of 68 and known to have breast cancer, congestive heart failure, hypertension. SOCIAL HISTORY: She is , has 2 daughters. She quit smoking on 05/19/1995. Quit drinking alcohol 6 months ago. She used to be a heavy alcohol drinker. She apparently has retired from the [employer]. PHYSICAL EXAMINATION: GENERAL: On examining her, she looked well and was clearly in no apparent respiratory distress. No pallor, jaundice or cyanosis. No lymphadenopathy, no thyromegaly. No jugular venous distension. No lower limb edema. VITAL SIGNS: Her heart rate was 70, blood pressure was 145/92, temperature was 98, respiratory rate was 16, and oxygen saturation was 97%. HEAD, EYES, EARS, NOSE and THROAT: Showed normocephalic, atraumatic. HEART: Showed normal first and second heart sounds with no gallop, rub or murmur. CHEST: Clear to auscultation. No crepitation or rhonchi. ABDOMEN: Distended, soft, nontender. NEUROLOGIC: She is awake, alert, responding appropriately. She has definitely no evidence of neck rigidity. All her cranial nerves are intact. EXTREMITIES: She moves her extremities without difficulty. LABORATORY DATA: While in the Emergency Room, she has had lab work done, it showed a white cell count of 6000, hemoglobin 12, hematocrit 37, MCV 93, and platelet count of 274,000. Her sed rate was 24 mm per hour and her serum sodium was 141, potassium 3.9, chloride 104, bicarbonate 27, anion gap of 10, BUN 11, creatinine was 0.7, estimated GFR was 92 mL per minute. Her glucose 108, calcium was 8.5, magnesium was 2.1. Her first set of cardiac enzyme was normal. Her prothrombin time was 9.3, INR 0.9, aPTT was 22. Urinalysis was essentially unremarkable and toxic screen was negative. She did have a CT scan of the head, which basically showed posterior fossa is unremarkable. No evidence of acute intracranial hemorrhage or abnormal extraaxial fluid collection, no evidence of mass effect or midline shift. Ventricles are symmetric in size and configuration. Reese and white matter distinction is intact. Visualized orbits are unremarkable. Visualized paranasal sinuses and mastoid air cells are clear. No acute calvarial abnormality. ASSESSMENT AND PLAN: So basically this is a 43-year-old female patient, who came in with acute migraine headache that so far has not responded. She developed severe chest pain when after finishing her Imitrex and valproic acid was started, so she was admitted to rule out myocardial infarction and we will do 2 more sets of cardiac enzyme and consult the cardiology team as well as the neurologist to assist with her management. EDDI VALERA MD DR: FAITH/celena JOB#: [id number] / [id number]
[2018-03-05] MEDS: diphenhydrAMINE 50 MG/ML VIAL IVP PRN ×3 (03:13→20:10)
[2018-03-05] MEDS: MORPHINE SULFATE 4 MG/ML DISP.SYRIN. IV PRN ×6 (03:14→22:54)
[2018-03-05 05:13] VITALS: BP 102/67
[2018-03-05] MEDS: VALPROATE SODIUM 500 MG in IV NORMAL SALINE 50ML 50 ML IV SCH (05:15)
[2018-03-05 06:44] LABS: HEMATOCRIT 36.1 % (36.0-47.0); HEMOGLOBIN 12.2 g/dL (12.0-15.5); RED BLOOD COUNT 3.91 x10^6/uL (3.50-5.40); RED CELL DISTRIBUTION WIDTH 13.4 % (11.5-14.5); WHITE BLOOD COUNT 5.3 x10^3/uL (4.0-11.0)
[2018-03-05 06:59] LABS: ALBUMIN 3.7 g/dL (3.4-5.0); ALBUMIN/GLOBULIN RATIO 1.1 (1.0-1.7); CALCIUM 8.8 mg/dL (8.5-10.1); CREATININE 0.8 mg/dL (0.6-1.0); GFR 78.7; TOTAL BILIRUBIN 0.3 mg/dL (0.2-1.0)
[2018-03-05 07:05] LABS: POTASSIUM 4.1 mmol/L (3.5-5.1)
[2018-03-05] MEDS ORDERED: POLYETHYLENE GLYCOL 3350 17 GM PACKET. PO PRN (09:00)
[2018-03-05] MEDS: GABAPENTIN 100 MG CAPSULE. PO SCH ×3 (09:04→20:09)
[2018-03-05] MEDS: clonazePAM 1 MG TABLET PO SCH ×3 (09:04→20:09)
[2018-03-05] MEDS: FLUoxetine HCL 20 MG CAPSULE PO SCH (09:04)
--- NOTE | 2018-03-05 09:34 | PDOC ---
PROGRESS NOTES Diagnosis Problem Problems Medical Problems: (1) Anxiety Status: Acute (2) Chest pain Status: Acute (3) Head ache Status: Acute Assessment Problems Medical Problems: (1) Anxiety Status: Acute (2) Chest pain Status: Acute (3) Head ache Status: Acute 1. Chest pain - PA ruled out, no acute EKG changes. No ASA secondary to allergy. No beta judit at this time as blood pressure is borderline. Echo pending. Check lipids. Outpatient MPI. 2. Accelerated hypertension - likely secondary to pain. Await echo. 3. Migranes - per PCP, Neuro Subjective c/o headache, right chest and neck pain. no dyspnea, no lightheadedness or syncope Objective Vital Signs Date Time Temp Pulse Resp B/P (MAP) Pulse Ox O2 Delivery O2 Flow Rate FiO2 03/05/18 08:17 98 Room Air 03/05/18 05:13 97.7 67 18 102/67 (79) Intake and Output 03/05/18 07:00 Intake Total 700 ml Output Total 1350 ml Balance -650 ml Intake Oral 700 ml Output Urine Total 1350 ml # Voids 2 Abdomen: Normal bowel sounds, Soft, No tenderness Heart: Regular rate, Normal S1, Normal S2 Extremities: No cyanosis, No edema, Normal pulses General: Alert, Oriented X3, Cooperative, mild distress Lungs: Clear to auscultation, Normal air movement Neuro: Normal speech Psych/Mental Status: Mental status NL, Mood NL Review of Relevant I have reviewed the following items leif (where applicable) has been applied. Labs Laboratory Tests Test 03/03/18 21:55 03/03/18 22:16 03/03/18 23:14 03/04/18 06:30 White Blood Count 6.1 x10^3/uL (4.0-11.0) 10.2 x10^3/uL (4.0-11.0) Red Blood Count 4.02 x10^6/uL (3.50-5.40) 4.01 x10^6/uL (3.50-5.40) Hemoglobin 12.4 g/dL (12.0-15.5) 12.3 g/dL (12.0-15.5) Hematocrit 37.3 % (36.0-47.0) 36.3 % (36.0-47.0) Mean Corpuscular Volume 93 fL (79-100) 91 fL (79-100) Mean Corpuscular Hemoglobin 31 pg (25-35) 31 pg (25-35) Mean Corpuscular Hemoglobin Concent 33 g/dL (31-37) 34 g/dL (31-37) Red Cell Distribution Width 13.4 % (11.5-14.5) 13.3 % (11.5-14.5) Platelet Count 274 x10^3/uL (140-400) 292 x10^3/uL (140-400) Neutrophils (%) (Auto) 75 % (31-73) 87 % (31-73) Lymphocytes (%) (Auto) 16 % (24-48) 7 % (24-48) Monocytes (%) (Auto) 8 % (0-9) 6 % (0-9) Eosinophils (%) (Auto) 1 % (0-3) 0 % (0-3) Basophils (%) (Auto) 1 % (0-3) 0 % (0-3) Neutrophils # (Auto) 4.5 x10^3uL (1.8-7.7) 8.9 x10^3uL (1.8-7.7) Lymphocytes # (Auto) 1.0 x10^3/uL (1.0-4.8) 0.7 x10^3/uL (1.0-4.8) Monocytes # (Auto) 0.5 x10^3/uL (0.0-1.1) 0.6 x10^3/uL (0.0-1.1) Eosinophils # (Auto) 0.1 x10^3/uL (0.0-0.7) 0.0 x10^3/uL (0.0-0.7) Basophils # (Auto) 0.0 x10^3/uL (0.0-0.2) 0.0 x10^3/uL (0.0-0.2) Erythrocyte Sedimentation Rate 24 (0-25) Prothrombin Time 9.3 SEC (9.4-11.4) Prothromb Time International Ratio 0.9 (0.9-1.1) Activated Partial Thromboplast Time 22 SEC (23-33) Sodium Level 141 mmol/L (136-145) 140 mmol/L (136-145) Potassium Level 3.9 mmol/L (3.5-5.1) 4.4 mmol/L (3.5-5.1) Chloride Level 104 mmol/L (98-107) 101 mmol/L (98-107) Carbon Dioxide Level 27 mmol/L (21-32) 27 mmol/L (21-32) Anion Gap 10 (6-14) 12 (6-14) Blood Urea Nitrogen 11 mg/dL (7-20) 10 mg/dL (7-20) Creatinine 0.7 mg/dL (0.6-1.0) 0.7 mg/dL (0.6-1.0) Estimated GFR (Cockcroft-Gault) 91.8 91.8 Glucose Level 108 mg/dL (70-99) 114 mg/dL (70-99) Calcium Level 8.5 mg/dL (8.5-10.1) 9.0 mg/dL (8.5-10.1) Magnesium Level 2.1 mg/dL (1.8-2.4) Creatine Kinase 43 U/L (26-192) Creatine Kinase MB (Mass) < 0.5 ng/mL (0.0-3.6) Creatine Kinase MB Relative Index 1.2 % (0-4) Troponin I Quantitative < 0.017 ng/mL (0-0.055) < 0.017 ng/mL (0-0.055) Thyroid Stimulating Hormone (TSH) 2.863 uIU/mL (0.358-3.740) Urine Collection Type Unknown Urine Color Yellow Urine Clarity Clear Urine pH 6.5 Urine Specific [place] 1.010 Urine Protein Neg (NEG-TRACE) Urine Glucose (UA) Neg mg/dL (NEG) Urine Ketones (Stick) Neg mg/dL (NEG) Urine Blood Neg (NEG) Urine Nitrite Neg (NEG) Urine Bilirubin Neg (NEG) Urine Urobilinogen Dipstick 0.2 mg/dL (0.2 mg/dL) Urine Leukocyte Esterase Trace (NEG) Urine RBC 0 /HPF (0-2) Urine WBC Occ /HPF (0-4) Urine Squamous Epithelial Cells Occ /LPF Urine Bacteria 0 /HPF (0-FEW) Urine Opiates Screen Neg (NEG) Urine Methadone Screen Neg (NEG) Urine Barbiturates Neg (NEG) Urine Phencyclidine Screen Neg (NEG) Urine Amphetamine/Methamphetamine Neg (NEG) Urine Benzodiazepines Screen Neg (NEG) Urine Cocaine Screen Neg (NEG) Urine Cannabinoids Screen Neg (NEG) Urine Ethyl Alcohol Neg (NEG) Bedside Troponin I 0.00 ng/ml (<0.08) Segmented Neutrophils % 90 % (35-66) Lymphocytes % 7 % (24-48) Monocytes % 2 % (0-10) Metamyelocytes % 1 % (0-0) Toxic Granulation Slight Platelet Estimate Adequate (ADEQUATE) Polychromasia Slight Test 03/05/18 06:22 White Blood Count 5.3 x10^3/uL (4.0-11.0) Red Blood Count 3.91 x10^6/uL (3.50-5.40) Hemoglobin 12.2 g/dL (12.0-15.5) Hematocrit 36.1 % (36.0-47.0) Mean Corpuscular Volume 92 fL (79-100) Mean Corpuscular Hemoglobin 31 pg (25-35) Mean Corpuscular Hemoglobin Concent 34 g/dL (31-37) Red Cell Distribution Width 13.4 % (11.5-14.5) Platelet Count 266 x10^3/uL (140-400) Sodium Level 140 mmol/L (136-145) Potassium Level 4.1 mmol/L (3.5-5.1) Chloride Level 101 mmol/L (98-107) Carbon Dioxide Level 32 mmol/L (21-32) Anion Gap 7 (6-14) Blood Urea Nitrogen 15 mg/dL (7-20) Creatinine 0.8 mg/dL (0.6-1.0) Estimated GFR (Cockcroft-Gault) 78.7 BUN/Creatinine Ratio 19 (6-20) Glucose Level 83 mg/dL (70-99) Calcium Level 8.8 mg/dL (8.5-10.1) Total Bilirubin 0.3 mg/dL (0.2-1.0) Aspartate Amino Transf (AST/SGOT) 21 U/L (15-37) Alanine Aminotransferase (ALT/SGPT) 39 U/L (14-59) Alkaline Phosphatase 146 U/L (46-116) Total Protein 7.0 g/dL (6.4-8.2) Albumin 3.7 g/dL (3.4-5.0) Albumin/Globulin Ratio 1.1 (1.0-1.7) Medications Current Medications Lactated Ringer's 1,000 ml @ 1,000 mls/hr 1X ONCE IV Last administered on 03/03at 22:24; Start 03/03/18 at 21:30; Stop 03/03/18 at 22:29; Status DC Valproic Acid 500 mg/Sodium Chloride 55 ml @ 55 mls/hr Q8HRS IV ; Start 03/03/18 at 22:00; Status UNV Ondansetron HCl (Zofran Odt) 8 mg 1X ONCE PO Last administered on 03/03/18at 22: 24; Start 03/03/18 at 21:30; Stop 03/03/18 at 21:54; Status DC Sumatriptan Succinate (Imitrex) 6 mg 1X ONCE SQ Last administered on 03/03/18at 22:24; Start 03/03/18 at 21:30; Stop 03/03/18 at 21:54; Status DC Valproic Acid 500 mg/Sodium Chloride 55 ml @ 55 mls/hr ONCE ONCE IV Last administered on 03/03/18at 22:25; Start 03/03/18 at 22:00; Stop 03/03/18 at 22:59; Status DC Valproic Acid 500 mg/Sodium Chloride 55 ml @ 55 mls/hr Q8HRS IV ; Start at 06:00 Sodium Chloride 50 ml @ As Directed STK-MED ONCE .ROUTE ; Start 03/03/18 at 22:14 ; Stop 03/03/18 at 22:15; Status DC Valproic Acid (Depacon) 500 mg STK-MED ONCE IV ; Start 03/03/18 at 22:15; Stop at 22:16; Status DC Diphenhydramine HCl (Benadryl) 50 mg 1X ONCE IVP Last administered on at 23:35; Start 03/03/18 at 22:30; Stop 03/03/18 at 22:33; Status DC Lorazepam (Ativan) 2 mg 1X ONCE IV Last administered on 03/03/18at 23:35; Start 03/03/18 at 23:00; Stop 03/03/18 at 23:01; Status DC Morphine Sulfate (Morphine 2mg Syringe) 2 mg 1X ONCE IV ; Start 03/03/18 at 23: 15; Stop 03/03/18 at 23:17; Status DC Morphine Sulfate (Morphine 4mg Syringe) 4 mg STK-MED ONCE .ROUTE ; Start at 23:49; Stop 03/03/18 at 23:50; Status DC Morphine Sulfate (Morphine 4mg Syringe) 2 mg 1X ONCE IV Last administered on at 23:54; Start 03/03/18 at 23:45; Stop 03/03/18 at 23:51; Status DC Morphine Sulfate (Morphine 4mg Syringe) 2 mg PRN Q2HR PRN IV PAIN Last administered on 03/05/18at 07:39; Start 03/04/18 at 01:00; Stop 03/06/18 at 00:58 Albuterol Sulfate (Ventolin Hfa) 1 puff PRN Q6HRS PRN INH SHORTNESS OF BREATH; Start 03/04/18 at 14:00; Stop 03/04/18 at 14:14; Status DC Gabapentin (Neurontin) 200 mg TID PO Last administered on 03/05/18at 09:04; Start 03/04/18 at 14:00 Clonazepam (KlonoPIN) 1 mg TID PO Last administered on 03/05/18at 09:04; Start 03/04/18 at 14:00 Fluoxetine HCl (PROzac) 40 mg DAILY PO Last administered on 03/05/18at 09:04; Start 03/05/18 at 09:00 Polyethylene Glycol (miraLAX) 17 gm PRN DAILY PRN PO CONSTIPATION; Start at 09:00 Tizanidine HCl (Zanaflex) 2 mg PRN Q8HRS PRN PO MUSCLE SPASMS Last administered on 03/05/18at 00:43; Start 03/04/18 at 14:15 Acetaminophen/ Butalbital/ Caffeine (Fioricet) 1 tab PRN Q6HRS PRN PO MIGRAINE HEADACHE Last administered on 03/04/18at 14:26; Start 03/04/18 at 14:00 Diphenhydramine HCl (Benadryl) 25 mg PRN Q6HRS PRN IVP ITCHING Last administered on 03/05/18at 03:13; Start 03/04/18 at 14:00 Albuterol Sulfate (Ventolin) 2.5 mg PRN Q6HRS PRN NEB SHORTNESS OF BREATH; Start 03/04/18 at 14:15 Active Scripts Active Reported Gabapentin 100 Mg Capsule 200 Mg PO TID LAST DOSE GIVEN: DATE: TIME: NEXT DOSE DUE: DATE: TIME: Proair Hfa Inhaler (Albuterol Sulfate) 8.5 Gm Hfa.aer.ad 1 Puff INH PRN Q6HRS PRN LAST DOSE GIVEN: DATE: TIME: NEXT DOSE DUE: DATE: TIME: Miralax (Polyethylene Glycol 3350) 17 Gm Powd.pack 17 Gm PO PRN DAILY PRN LAST DOSE GIVEN: DATE: TIME: NEXT DOSE DUE: DATE: TIME: Klonopin (Clonazepam) 1 Mg Tablet 1 Mg PO TID LAST DOSE GIVEN: DATE: TIME: NEXT DOSE DUE: DATE: TIME: Prozac (Fluoxetine Hcl) 40 Mg Capsule 40 Mg PO DAILY LAST DOSE GIVEN: DATE: TIME: NEXT DOSE DUE: DATE: TIME: Promethazine Hcl 25 Mg Tablet 25 Mg PO PRN Q8HRS PRN LAST DOSE GIVEN: DATE: TIME: NEXT DOSE DUE: DATE: TIME: Tizanidine HCl 2 Mg Tablet 2 Mg PO PRN Q8HRS PRN LAST DOSE GIVEN: DATE: TIME: NEXT DOSE DUE: DATE: TIME: Vitals/I & O Vital Sign - Last 24 Hours 03/04/18 03/04/18 03/04/18 03/04/18 10:50 11:30 13:04 15:31 Pulse 82 96 Resp 16 18 B/P (MAP) 103/67 (79) 122/80 (94) Pulse Ox 96 96 96 95 O2 Delivery Room Air Room Air Room Air Room Air 03/04/18 03/04/18 03/04/18 03/04/18 15:53 18:34 19:44 20:00 Temp 98.5 Pulse 85 Resp 18 B/P (MAP) 107/71 (83) Pulse Ox 95 95 98 O2 Delivery Room Air Room Air Room Air Room Air 03/04/18 03/04/18 03/04/18 03/05/18 20:24 23:14 23:21 03:14 Temp 98.0 Pulse 79 B/P (MAP) 110/75 (87) Pulse Ox 98 O2 Delivery Room Air Room Air Room Air Room Air 03/05/18 03/05/18 03/05/1811/18 05:13 05:33 07:39 08:17 Temp 97.7 Pulse 67 Resp 18 B/P (MAP) 102/67 (79) Pulse Ox 98 98 98 98 O2 Delivery Room Air Room Air Room Air Room Air Intake and Output 03/04/18 03/04/18 03/05/18 15:00 23:00 07:00 Intake Total 460 ml 240 ml Output Total 450 ml 550 ml 350 ml Balance 10 ml -310 ml -350 ml MICHELLE LYONS [employer] Mar 05, 2018 09:34
[2018-03-05 11:00] VITALS: BP 107/72
[2018-03-05] MEDS ORDERED: HYDROcodone/APAP 5/325MG 1 TAB TABLET PO PRN (11:15)
--- NOTE | 2018-03-05 12:49 | CONS ---
DATE OF CONSULTATION: 03/04/2018 REFERRING PHYSICIAN: Dr. Marina. REASON FOR CONSULTATION: Severe headaches. HISTORY OF PRESENT ILLNESS: This is a 43-year-old right-handed female who was admitted through the Emergency Room after she presented with 5-day history of severe global constant headaches rated at 10/10 without association with nausea, vomiting, photophobia, or phonophobia. However, the patient described a longstanding history of tension and migraine headaches after she underwent a hysterectomy for uterine endometriosis. The patient also described classic migraines, unilateral right-sided, throbbing headaches preceded by visual aura and followed by headaches associated with nausea, sometimes vomiting and photophobia and phonophobia. The patient stated her headaches today is not migraine, but she related that to her underlying anxiety and depression with exacerbation in the last week or so. The patient has had a brain MRI and head CT scan in the past, which revealed no significant abnormalities. She used Imitrex and Maxalt in the past particularly for migraine headache, but they did not work well; however, Midrin was working well for migraine headaches. She also takes muscle relaxants like Zanaflex along with Percocet or hydrocodone for tension headache with successful results. Currently, she receives morphine, but she calls for every 2/3 hours as needed. She stated her Tylenol cause elevation of liver enzymes, but she could take it off and on with some help. The patient stated her Percocet plus Benadryl offered her good relief of tension headaches. PAST MEDICAL HISTORY: Quite significant for depression, anxiety, posttraumatic stress disorders, and she retired from 4 years ago, status post hysterectomy as described above, history of intermittent numbness and paresthesia of the lower back, breast implants bilaterally, sleep disturbance with insomnia. SOCIAL HISTORY: The patient is . She has 2 teenaged daughters. She denies smoking. She has history of alcoholism, but not recently. FAMILY HISTORY: Mother had breast cancer, hypertension and father had arthritis, daughter has attention deficit hyperactivity disorders. ALLERGIES: NSAIDS, ASPIRIN, METOCLOPRAMIDE, PROCHLORPERAZINE. REVIEW OF SYSTEMS: A 10-point review of systems as mentioned above in the history of present illness. However, she denies chest pain, shortness of breath, palpitations, dysarthria, dysphagia, bowel or bladder incontinence, or vertigo. CURRENT MEDICATIONS: MiraLax, Prozac 40 mg daily, albuterol inhaler 2.5 p.r.n., tizanidine 2 mg daily, Benadryl 25 mg q.6 hours p.r.n., Tylenol p.r.n., clonazepam 1 mg t.i.d., gabapentin 200 mg t.i.d., valproic acid 500 mg IV q.8 hours, and morphine 2 mg IV every 2 hours p.r.n. PHYSICAL EXAMINATION: GENERAL: Well-developed, well-nourished white female, not in acute distress. She weighs 143.4 pounds. VITAL SIGNS: Blood pressure 103/67, respiratory rate 16, pulse is 82, afebrile, oxygen saturation 96% on room air. HEENT: Normocephalic, atraumatic, otherwise unremarkable. NECK: Supple. Negative for carotid bruit, lymphadenopathy, or thyromegaly. LUNGS: Clear to A and P. CARDIOVASCULAR: Regular rate and rhythm, normal S1-S2. There is no S3, S4, or murmur. ABDOMEN: Soft. Bowel sounds positive. EXTREMITIES: Negative for cyanosis, clubbing, or pitting edema. NEUROLOGIC: 1. Mental Status: The patient is alert and oriented x 3. Speech is fluent. There is no language dysfunction. Memory, judgment, and abstracting thinking are normal. The patient denies hallucination or delusion. 2. Cranial Nerves: Visual rivers are full. The pupils are reactive to light and accommodation. The extraocular movements are intact. There is no nystagmus. There is no facial motor or sensory deficit. Hearing is intact bilaterally. The palate is elevated symmetrically. Sternocleidomastoid muscles are powerful bilaterally. The patient shrugs her shoulders symmetrically, protrudes her tongue in the midline without fasciculation or atrophy. 3. Motor Examination: No focal muscle bulk was seen. The tone is normal. The strength is 5/5 throughout. 4. Sensory Examination: Revealed normal pinprick, light touch, vibratory and position senses. 5. Deep tendon reflexes were symmetric and active without pathologic responses. 6. Gait and coordination were normal. DIAGNOSTIC DATA: Initial nonenhanced head CT scan revealed no evidence of acute intracranial process. LABORATORY DATA: CBC revealed white blood cells of 12.2 thousand, hemoglobin 12.3, hematocrit 36.3, platelet count 292,000. Chemistry revealed sodium 140, potassium 4.4, chloride 101, CO2 of 27, BUN 10, creatinine 0.7, glucose 114. Troponin level is normal. TSH is normal. Urinalysis is negative for urinary tract infections with trace urine leukocyte esterase. Urine drug screen is negative. IMPRESSION: 1. Tension headaches described as global headaches with neck muscle spasm. 2. Long history of migraine headaches, not at this time. 3. Multiple psychiatric problems including depressions, anxiety. 4. Sleep disorder. Sleep disturbances. 5. Intermittent numbness and paresthesia of the feet, rule out entrapment neuropathy at the wrist - carpal tunnel syndrome. RECOMMENDATIONS: 1. Continue with current management initiated by Dr. Marina with a muscle relaxant and a small dose of narcotics p.r.n. to break the cycle along with medications for depressions and anxiety. 2. In case of having migraine headaches, the patient stated the best antimigraine medication for her was Midrin. M Fili GARNER MD DR: ANAT/celena JOB#: [id number] / [id number]
[2018-03-05 15:00] VITALS: BP 112/76
[2018-03-05] MEDS ORDERED: MORPHINE SULFATE 2 MG/ML DISP.SYRIN. IV PRN (15:45)
--- NOTE | 2018-03-05 18:30 | PDOC2 ---
CONSULT Date of Admission DATE: 03/05/18 TIME: 18:24 Reason for Consult: chest pain Referring Physician: Dr. Marina Chief Complaint headache Source: Patient Problem List Problems Medical Problems: (1) Anxiety Status: Acute (2) Chest pain Status: Acute (3) Head ache Status: Acute History of Present Illness The patient is a 43-year-old female who was admitted through the emergency room with episodes of migraine headaches lasting for greater than 2 days. Initially the patient reported no chest pain but post Imitrex the patient states she developed chest discomfort. EKG shows no acute ischemic changes. Initial troponin is normal. Patient's pain resolved after 20 minutes. She has had no recurrent chest pain overnight. She has no history of coronary artery disease, congestive heart failure or cardiac arrhythmias. Cardiovascular: HTN Pulmonary: Asthma CENTRAL NERVOUS SYSTEM: Migraine Psych: Anxiety Past Surgical History: Appendectomy, Cholecystectomy, Hysterectomy Family History: Hypertension Smoke: No Current Medications Current Medications Lactated Ringer's 1,000 ml @ 1,000 mls/hr 1X ONCE IV Last administered on 03/03at 22:24; Start 03/03/18 at 21:30; Stop 03/03/18 at 22:29; Status DC Valproic Acid 500 mg/Sodium Chloride 55 ml @ 55 mls/hr Q8HRS IV ; Start 03/03/18 at 22:00; Status UNV Ondansetron HCl (Zofran Odt) 8 mg 1X ONCE PO Last administered on 03/03/18at 22: 24; Start 03/03/18 at 21:30; Stop 03/03/18 at 21:54; Status DC Sumatriptan Succinate (Imitrex) 6 mg 1X ONCE SQ Last administered on 03/03/18at 22:24; Start 03/03/18 at 21:30; Stop 03/03/18 at 21:54; Status DC Valproic Acid 500 mg/Sodium Chloride 55 ml @ 55 mls/hr ONCE ONCE IV Last administered on 03/03/18at 22:25; Start 03/03/18 at 22:00; Stop 03/03/18 at 22:59; Status DC Valproic Acid 500 mg/Sodium Chloride 55 ml @ 55 mls/hr Q8HRS IV ; Start at 06:00; Stop 03/05/18 at 11:06; Status DC Sodium Chloride 50 ml @ As Directed STK-MED ONCE .ROUTE ; Start 03/03/18 at 22:14 ; Stop 03/03/18 at 22:15; Status DC Valproic Acid (Depacon) 500 mg STK-MED ONCE IV ; Start 03/03/18 at 22:15; Stop at 22:16; Status DC Diphenhydramine HCl (Benadryl) 50 mg 1X ONCE IVP Last administered on at 23:35; Start 03/03/18 at 22:30; Stop 03/03/18 at 22:33; Status DC Lorazepam (Ativan) 2 mg 1X ONCE IV Last administered on 03/03/18at 23:35; Start 03/03/18 at 23:00; Stop 03/03/18 at 23:01; Status DC Morphine Sulfate (Morphine 2mg Syringe) 2 mg 1X ONCE IV ; Start 03/03/18 at 23: 15; Stop 03/03/18 at 23:17; Status DC Morphine Sulfate (Morphine 4mg Syringe) 4 mg STK-MED ONCE .ROUTE ; Start at 23:49; Stop 03/03/18 at 23:50; Status DC Morphine Sulfate (Morphine 4mg Syringe) 2 mg 1X ONCE IV Last administered on at 23:54; Start 03/03/18 at 23:45; Stop 03/03/18 at 23:51; Status DC Morphine Sulfate (Morphine 4mg Syringe) 2 mg PRN Q2HR PRN IV PAIN Last administered on 03/05/18at 10:19; Start 03/04/18 at 01:00; Stop 03/05/18 at 11:06 ; Status DC Albuterol Sulfate (Ventolin Hfa) 1 puff PRN Q6HRS PRN INH SHORTNESS OF BREATH; Start 03/04/18 at 14:00; Stop 03/04/18 at 14:14; Status DC Gabapentin (Neurontin) 200 mg TID PO Last administered on 03/05/18at 13:57; Start 03/04/18 at 14:00 Clonazepam (KlonoPIN) 1 mg TID PO Last administered on 03/05/18at 13:58; Start 03/04/18 at 14:00 Fluoxetine HCl (PROzac) 40 mg DAILY PO Last administered on 03/05/18at 09:04; Start 03/05/18 at 09:00 Polyethylene Glycol (miraLAX) 17 gm PRN DAILY PRN PO CONSTIPATION; Start at 09:00 Tizanidine HCl (Zanaflex) 2 mg PRN Q8HRS PRN PO MUSCLE SPASMS Last administered on 03/05/18at 00:43; Start 03/04/18 at 14:15 Acetaminophen/ Butalbital/ Caffeine (Fioricet) 1 tab PRN Q6HRS PRN PO MIGRAINE HEADACHE Last administered on 03/04/18at 14:26; Start 03/04/18 at 14:00 Diphenhydramine HCl (Benadryl) 25 mg PRN Q6HRS PRN IVP ITCHING Last administered on 03/05/18at 11:15; Start 03/04/18 at 14:00 Albuterol Sulfate (Ventolin) 2.5 mg PRN Q6HRS PRN NEB SHORTNESS OF BREATH; Start 03/04/18 at 14:15 Acetaminophen/ Hydrocodone Bitart (Lortab 5/325) 1 tab PRN Q6HRS PRN PO PAIN Last administered on 03/05/18at 14:04; Start 03/05/18 at 11:15 Morphine Sulfate (Morphine 2mg Syringe) 2 mg PRN Q2HR PRN IV PAIN Last administered on 03/05/18at 15:57; Start 03/05/18 at 15:45 Active Scripts Active Reported Gabapentin 100 Mg Capsule 200 Mg PO TID LAST DOSE GIVEN: DATE: TIME: NEXT DOSE DUE: DATE: TIME: Proair Hfa Inhaler (Albuterol Sulfate) 8.5 Gm Hfa.aer.ad 1 Puff INH PRN Q6HRS PRN LAST DOSE GIVEN: DATE: TIME: NEXT DOSE DUE: DATE: TIME: Miralax (Polyethylene Glycol 3350) 17 Gm Powd.pack 17 Gm PO PRN DAILY PRN LAST DOSE GIVEN: DATE: TIME: NEXT DOSE DUE: DATE: TIME: Klonopin (Clonazepam) 1 Mg Tablet 1 Mg PO TID LAST DOSE GIVEN: DATE: TIME: NEXT DOSE DUE: DATE: TIME: Prozac (Fluoxetine Hcl) 40 Mg Capsule 40 Mg PO DAILY LAST DOSE GIVEN: DATE: TIME: NEXT DOSE DUE: DATE: TIME: Promethazine Hcl 25 Mg Tablet 25 Mg PO PRN Q8HRS PRN LAST DOSE GIVEN: DATE: TIME: NEXT DOSE DUE: DATE: TIME: Tizanidine HCl 2 Mg Tablet 2 Mg PO PRN Q8HRS PRN LAST DOSE GIVEN: DATE: TIME: NEXT DOSE DUE: DATE: TIME: Allergies: Coded Allergies: NSAIDS (Non-Steroidal Anti-Inflamma (Verified Allergy, Severe, 03/13/17) aspirin (Verified Allergy, Severe, 03/13/17) metoclopramide (Verified Allergy, Mild, anxiety, 03/03/18) prochlorperazine (Verified Allergy, Mild, anxiety, 03/03/18) General: YES: Fatigue Neurological: YES: Headaches General: mild distress HEENT: Atraumatic Lungs: Clear to auscultation Heart: Regular rate Abdomen: Normal bowel sounds VITALS Vital Signs Date Time Temp Pulse Resp B/P (MAP) Pulse Ox O2 Delivery O2 Flow Rate FiO2 03/05/18 16:43 98 Room Air 03/05/18 15:00 97.1 82 16 112/76 (88) Labs Laboratory Tests Test 03/03/18 21:55 03/03/18 22:16 03/03/18 23:14 03/04/18 06:30 White Blood Count 6.1 x10^3/uL (4.0-11.0) 10.2 x10^3/uL (4.0-11.0) Red Blood Count 4.02 x10^6/uL (3.50-5.40) 4.01 x10^6/uL (3.50-5.40) Hemoglobin 12.4 g/dL (12.0-15.5) 12.3 g/dL (12.0-15.5) Hematocrit 37.3 % (36.0-47.0) 36.3 % (36.0-47.0) Mean Corpuscular Volume 93 fL (79-100) 91 fL (79-100) Mean Corpuscular Hemoglobin 31 pg (25-35) 31 pg (25-35) Mean Corpuscular Hemoglobin Concent 33 g/dL (31-37) 34 g/dL (31-37) Red Cell Distribution Width 13.4 % (11.5-14.5) 13.3 % (11.5-14.5) Platelet Count 274 x10^3/uL (140-400) 292 x10^3/uL (140-400) Neutrophils (%) (Auto) 75 % (31-73) 87 % (31-73) Lymphocytes (%) (Auto) 16 % (24-48) 7 % (24-48) Monocytes (%) (Auto) 8 % (0-9) 6 % (0-9) Eosinophils (%) (Auto) 1 % (0-3) 0 % (0-3) Basophils (%) (Auto) 1 % (0-3) 0 % (0-3) Neutrophils # (Auto) 4.5 x10^3uL (1.8-7.7) 8.9 x10^3uL (1.8-7.7) Lymphocytes # (Auto) 1.0 x10^3/uL (1.0-4.8) 0.7 x10^3/uL (1.0-4.8) Monocytes # (Auto) 0.5 x10^3/uL (0.0-1.1) 0.6 x10^3/uL (0.0-1.1) Eosinophils # (Auto) 0.1 x10^3/uL (0.0-0.7) 0.0 x10^3/uL (0.0-0.7) Basophils # (Auto) 0.0 x10^3/uL (0.0-0.2) 0.0 x10^3/uL (0.0-0.2) Erythrocyte Sedimentation Rate 24 (0-25) Prothrombin Time 9.3 SEC (9.4-11.4) Prothromb Time International Ratio 0.9 (0.9-1.1) Activated Partial Thromboplast Time 22 SEC (23-33) Sodium Level 141 mmol/L (136-145) 140 mmol/L (136-145) Potassium Level 3.9 mmol/L (3.5-5.1) 4.4 mmol/L (3.5-5.1) Chloride Level 104 mmol/L (98-107) 101 mmol/L (98-107) Carbon Dioxide Level 27 mmol/L (21-32) 27 mmol/L (21-32) Anion Gap 10 (6-14) 12 (6-14) Blood Urea Nitrogen 11 mg/dL (7-20) 10 mg/dL (7-20) Creatinine 0.7 mg/dL (0.6-1.0) 0.7 mg/dL (0.6-1.0) Estimated GFR (Cockcroft-Gault) 91.8 91.8 Glucose Level 108 mg/dL (70-99) 114 mg/dL (70-99) Calcium Level 8.5 mg/dL (8.5-10.1) 9.0 mg/dL (8.5-10.1) Magnesium Level 2.1 mg/dL (1.8-2.4) Creatine Kinase 43 U/L (26-192) Creatine Kinase MB (Mass) < 0.5 ng/mL (0.0-3.6) Creatine Kinase MB Relative Index 1.2 % (0-4) Troponin I Quantitative < 0.017 ng/mL (0-0.055) < 0.017 ng/mL (0-0.055) Thyroid Stimulating Hormone (TSH) 2.863 uIU/mL (0.358-3.740) Urine Collection Type Unknown Urine Color Yellow Urine Clarity Clear Urine pH 6.5 Urine Specific [place] 1.010 Urine Protein Neg (NEG-TRACE) Urine Glucose (UA) Neg mg/dL (NEG) Urine Ketones (Stick) Neg mg/dL (NEG) Urine Blood Neg (NEG) Urine Nitrite Neg (NEG) Urine Bilirubin Neg (NEG) Urine Urobilinogen Dipstick 0.2 mg/dL (0.2 mg/dL) Urine Leukocyte Esterase Trace (NEG) Urine RBC 0 /HPF (0-2) Urine WBC Occ /HPF (0-4) Urine Squamous Epithelial Cells Occ /LPF Urine Bacteria 0 /HPF (0-FEW) Urine Opiates Screen Neg (NEG) Urine Methadone Screen Neg (NEG) Urine Barbiturates Neg (NEG) Urine Phencyclidine Screen Neg (NEG) Urine Amphetamine/Methamphetamine Neg (NEG) Urine Benzodiazepines Screen Neg (NEG) Urine Cocaine Screen Neg (NEG) Urine Cannabinoids Screen Neg (NEG) Urine Ethyl Alcohol Neg (NEG) Bedside Troponin I 0.00 ng/ml (<0.08) Segmented Neutrophils % 90 % (35-66) Lymphocytes % 7 % (24-48) Monocytes % 2 % (0-10) Metamyelocytes % 1 % (0-0) Toxic Granulation Slight Platelet Estimate Adequate (ADEQUATE) Polychromasia Slight Test 03/05/18 06:22 White Blood Count 5.3 x10^3/uL (4.0-11.0) Red Blood Count 3.91 x10^6/uL (3.50-5.40) Hemoglobin 12.2 g/dL (12.0-15.5) Hematocrit 36.1 % (36.0-47.0) Mean Corpuscular Volume 92 fL (79-100) Mean Corpuscular Hemoglobin 31 pg (25-35) Mean Corpuscular Hemoglobin Concent 34 g/dL (31-37) Red Cell Distribution Width 13.4 % (11.5-14.5) Platelet Count 266 x10^3/uL (140-400) Sodium Level 140 mmol/L (136-145) Potassium Level 4.1 mmol/L (3.5-5.1) Chloride Level 101 mmol/L (98-107) Carbon Dioxide Level 32 mmol/L (21-32) Anion Gap 7 (6-14) Blood Urea Nitrogen 15 mg/dL (7-20) Creatinine 0.8 mg/dL (0.6-1.0) Estimated GFR (Cockcroft-Gault) 78.7 BUN/Creatinine Ratio 19 (6-20) Glucose Level 83 mg/dL (70-99) Calcium Level 8.8 mg/dL (8.5-10.1) Total Bilirubin 0.3 mg/dL (0.2-1.0) Aspartate Amino Transf (AST/SGOT) 21 U/L (15-37) Alanine Aminotransferase (ALT/SGPT) 39 U/L (14-59) Alkaline Phosphatase 146 U/L (46-116) Total Protein 7.0 g/dL (6.4-8.2) Albumin 3.7 g/dL (3.4-5.0) Albumin/Globulin Ratio 1.1 (1.0-1.7) Triglycerides Level 117 mg/dL (0-150) Cholesterol Level 256 mg/dL (0-200) LDL Cholesterol, Calculated 161 mg/dL (0-100) VLDL Cholesterol, Calculated 23 mg/dL (0-40) Non-HDL Cholesterol Calculated 184 mg/dL (0-129) HDL Cholesterol 72 mg/dL (40-60) Cholesterol/HDL Ratio 3.0 Assessment/Plan 1. migraine headaches. Mildly improved post treatment. We'll continue present medications as per the primary service and possibly neurology. 2. Accelerated hypertension. Significantly improved. We'll adjust medications as needed. 3. Chest pain post treatment with Imitrex. No acute EKG changes. No significant elevation in troponin. We'll check echocardiogram. We'll consider outpatient stress testing. Thank you for allowing us to participate in the care of your patient. ARCENIO DOE MD Mar 05, 2018 18:29
[2018-03-05 20:17] VITALS: BP 104/72
[2018-03-05] MEDS: BUTALB/APAP/CAFEIN 50/325/40MG TABLET. PO PRN (22:53)
[2018-03-05 23:52] VITALS: BP 116/87
--- NOTE | 2018-03-06 01:21 | PN ---
DATE: 03/05/2018 SUBJECTIVE: The patient is resting slightly propped up in bed, in no apparent distress, very sleepy, arousable. She came in with severe migraine headache; however, she has also developed chest pain after injection of the Imitrex. She was seen by the Cardiology team and the recommendation was for her to have a stress test as well as an echocardiogram. She was seen also by Dr. Hurtado, the neurologist and the plan is to attempt to discontinue the IV morphine and start her on oral pain medications. PHYSICAL EXAMINATION: GENERAL: When I saw her this morning, she looked well and was clearly in no apparent respiratory distress, pale, but no jaundice, cyanosis or thyromegaly. No jugular venous distention. No limb edema. VITAL SIGNS: Her heart rate was 67, blood pressure was 102/67, temperature was 97.7, respiratory rate was 18 and oxygen saturation was 98%. The rest of clinical examination is unremarkable and stable. LABORATORY DATA: This morning showed a serum sodium 140, potassium 4.1, chloride 101, bicarbonate 32, anion gap 7. BUN is 15, creatinine 0.8. Estimated GFR was 78 mL per minute. Her glucose was 83. Calcium was 8.8. Total bilirubin, AST, ALT were normal. Alkaline phosphatase slight elevation. Total protein 7. Albumin was 3.7. Her white cell count was 5300, hemoglobin 12, hematocrit 36, MCV 92 and platelet count of 266. ASSESSMENT: This is a 43-year-old female patient, who came in with acute migraine headache and so far has subsided. She also developed severe chest pain after finishing with Imitrex and valproic acid. She has 3 sets of cardiac enzymes that ruled out myocardial infarction. She was seen by the Cardiology team. Arrangement has been made for echocardiogram and stress test after which she will be discharged home. I will discontinue IV morphine and IV valproic acid and start her on oral hydrocodone. EDDI VALERA MD DR: FAITH/celena JOB#: [id number] / [id number]
[2018-03-06] MEDS: MORPHINE SULFATE 4 MG/ML DISP.SYRIN. IV PRN ×4 (01:49→10:25)
--- NOTE | 2018-03-06 01:50 | PN ---
DATE: REFERRING PHYSICIAN: Dr. Marina. SUBJECTIVE: The patient continues to have global headaches with intermittent nausea, but not vomiting. She asked for morphine at 4 mg every 2 hours and or/hydrocodone or/Percocet with Codeine. The patient denies visual disturbances, chest pain, shortness of breath, palpitation, weakness or paresthesia. OBJECTIVE: GENERAL: Well-developed and well-nourished female, not in acute distress. VITAL SIGNS: Blood pressure 107/72, respiratory rate 16, pulse is 80 and regular, temperature 97.5, and oxygen saturation 95% on room air. HEENT: Normocephalic and atraumatic, otherwise unremarkable. NECK: Supple. Negative for carotid bruit, lymphadenopathy or thyromegaly. LUNGS: Clear to A and P. CARDIOVASCULAR: Regular rate and rhythm, normal S1, S2. ABDOMEN: Soft. Bowel sounds positive. EXTREMITIES: Negative for cyanosis, clubbing or pitting edema. NEUROLOGICAL EXAM: Mental Status: The patient is alert and oriented x 3. Speech is fluent. There is no language dysfunction. She denies hallucination or delusion. Cranial nerves are intact. No focal motor or sensory deficit. Deep tendon reflexes were symmetric and active without pathologic responses. Gait and coordinations are normal. IMPRESSION: 1. Frequent and severe tension headaches. 2. Underlying anxiety and depressions. 3. Multiple medical problems include sleep disturbances and a history of migraine headaches. RECOMMENDATIONS: 1. Continue with current management initiated by Dr. Marina. 2. The patient will continue with muscle relaxant and treat the underlying depressions and anxiety. 3. Avoid excessive narcotics as possible. M Fili GARNER MD DR: ANAT/celena JOB#: [id number] / [id number]
[2018-03-06] MEDS: diphenhydrAMINE 50 MG/ML VIAL IVP PRN ×2 (03:42→14:39)
--- NOTE | 2018-03-06 04:19 | NUR ---
Nursing: Pt continually requesting morphine IVP for c/o RAMAN and chest discomfort. When approached, pt awake, watching movies on her laptop. Laughing and joking with [facility] staff. Encouraged pt to try PO Lortab for longer lasting pain control. Pt states, "No, I really just want my morphine."
[2018-03-06 05:54] VITALS: BP 102/67
[2018-03-06] MEDS ORDERED: REGADENOSON 0.4 MG/5 ML DISP.SYRIN. IV ONE (09:00)
[2018-03-06] MEDS: GABAPENTIN 100 MG CAPSULE. PO SCH ×2 (11:19→14:39)
[2018-03-06] MEDS: clonazePAM 1 MG TABLET PO SCH ×2 (11:19→14:39)
[2018-03-06] MEDS: FLUoxetine HCL 20 MG CAPSULE PO SCH (11:19)
--- NOTE | 2018-03-06 11:19 | PDOC ---
PROGRESS NOTES Diagnosis Problem Problems Medical Problems: (1) Anxiety Status: Acute (2) Chest pain Status: Acute (3) Head ache Status: Acute Assessment Problems Medical Problems: (1) Anxiety Status: Acute (2) Chest pain Status: Acute (3) Head ache Status: Acute Duplicate Objective Vital Signs Date Time Temp Pulse Resp B/P (MAP) Pulse Ox O2 Delivery O2 Flow Rate FiO2 03/06/18 10:25 95 Room Air 03/06/18 05:54 97.9 70 16 102/67 (79) Intake and Output 03/06/18 07:00 Intake Total 1260 ml Balance 1260 ml Intake Oral 1260 ml # Voids 6 Review of Relevant I have reviewed the following items leif (where applicable) has been applied. Labs Laboratory Tests Test 03/05/18 06:22 White Blood Count 5.3 x10^3/uL (4.0-11.0) Red Blood Count 3.91 x10^6/uL (3.50-5.40) Hemoglobin 12.2 g/dL (12.0-15.5) Hematocrit 36.1 % (36.0-47.0) Mean Corpuscular Volume 92 fL (79-100) Mean Corpuscular Hemoglobin 31 pg (25-35) Mean Corpuscular Hemoglobin Concent 34 g/dL (31-37) Red Cell Distribution Width 13.4 % (11.5-14.5) Platelet Count 266 x10^3/uL (140-400) Sodium Level 140 mmol/L (136-145) Potassium Level 4.1 mmol/L (3.5-5.1) Chloride Level 101 mmol/L (98-107) Carbon Dioxide Level 32 mmol/L (21-32) Anion Gap 7 (6-14) Blood Urea Nitrogen 15 mg/dL (7-20) Creatinine 0.8 mg/dL (0.6-1.0) Estimated GFR (Cockcroft-Gault) 78.7 BUN/Creatinine Ratio 19 (6-20) Glucose Level 83 mg/dL (70-99) Calcium Level 8.8 mg/dL (8.5-10.1) Total Bilirubin 0.3 mg/dL (0.2-1.0) Aspartate Amino Transf (AST/SGOT) 21 U/L (15-37) Alanine Aminotransferase (ALT/SGPT) 39 U/L (14-59) Alkaline Phosphatase 146 U/L (46-116) Total Protein 7.0 g/dL (6.4-8.2) Albumin 3.7 g/dL (3.4-5.0) Albumin/Globulin Ratio 1.1 (1.0-1.7) Triglycerides Level 117 mg/dL (0-150) Cholesterol Level 256 mg/dL (0-200) LDL Cholesterol, Calculated 161 mg/dL (0-100) VLDL Cholesterol, Calculated 23 mg/dL (0-40) Non-HDL Cholesterol Calculated 184 mg/dL (0-129) HDL Cholesterol 72 mg/dL (40-60) Cholesterol/HDL Ratio 3.0 Microbiology 03/03/18 Urine Culture - Final, Complete 03/03/18 Urine Culture Result 1 (CHANDAN) - Final, Complete Medications Current Medications Lactated Ringer's 1,000 ml @ 1,000 mls/hr 1X ONCE IV Last administered on 03/03at 22:24; Start 03/03/18 at 21:30; Stop 03/03/18 at 22:29; Status DC Valproic Acid 500 mg/Sodium Chloride 55 ml @ 55 mls/hr Q8HRS IV ; Start 03/03/18 at 22:00; Status UNV Ondansetron HCl (Zofran Odt) 8 mg 1X ONCE PO Last administered on 03/03/18at 22: 24; Start 03/03/18 at 21:30; Stop 03/03/18 at 21:54; Status DC Sumatriptan Succinate (Imitrex) 6 mg 1X ONCE SQ Last administered on 03/03/18at 22:24; Start 03/03/18 at 21:30; Stop 03/03/18 at 21:54; Status DC Valproic Acid 500 mg/Sodium Chloride 55 ml @ 55 mls/hr ONCE ONCE IV Last administered on 03/03/18at 22:25; Start 03/03/18 at 22:00; Stop 03/03/18 at 22:59; Status DC Valproic Acid 500 mg/Sodium Chloride 55 ml @ 55 mls/hr Q8HRS IV ; Start at 06:00; Stop 03/05/18 at 11:06; Status DC Sodium Chloride 50 ml @ As Directed STK-MED ONCE .ROUTE ; Start 03/03/18 at 22:14 ; Stop 03/03/18 at 22:15; Status DC Valproic Acid (Depacon) 500 mg STK-MED ONCE IV ; Start 03/03/18 at 22:15; Stop at 22:16; Status DC Diphenhydramine HCl (Benadryl) 50 mg 1X ONCE IVP Last administered on at 23:35; Start 03/03/18 at 22:30; Stop 03/03/18 at 22:33; Status DC Lorazepam (Ativan) 2 mg 1X ONCE IV Last administered on 03/03/18at 23:35; Start 03/03/18 at 23:00; Stop 03/03/18 at 23:01; Status DC Morphine Sulfate (Morphine 2mg Syringe) 2 mg 1X ONCE IV ; Start 03/03/18 at 23: 15; Stop 03/03/18 at 23:17; Status DC Morphine Sulfate (Morphine 4mg Syringe) 4 mg STK-MED ONCE .ROUTE ; Start at 23:49; Stop 03/03/18 at 23:50; Status DC Morphine Sulfate (Morphine 4mg Syringe) 2 mg 1X ONCE IV Last administered on at 23:54; Start 03/03/18 at 23:45; Stop 03/03/18 at 23:51; Status DC Morphine Sulfate (Morphine 4mg Syringe) 2 mg PRN Q2HR PRN IV PAIN Last administered on 03/05/18at 10:19; Start 03/04/18 at 01:00; Stop 03/05/18 at 11:06 ; Status DC Albuterol Sulfate (Ventolin Hfa) 1 puff PRN Q6HRS PRN INH SHORTNESS OF BREATH; Start 03/04/18 at 14:00; Stop 03/04/18 at 14:14; Status DC Gabapentin (Neurontin) 200 mg TID PO Last administered on 03/05/18at 20:09; Start 03/04/18 at 14:00 Clonazepam (KlonoPIN) 1 mg TID PO Last administered on 03/05/18at 20:09; Start 03/04/18 at 14:00 Fluoxetine HCl (PROzac) 40 mg DAILY PO Last administered on 03/05/18at 09:04; Start 03/05/18 at 09:00 Polyethylene Glycol (miraLAX) 17 gm PRN DAILY PRN PO CONSTIPATION; Start at 09:00 Tizanidine HCl (Zanaflex) 2 mg PRN Q8HRS PRN PO MUSCLE SPASMS Last administered on 03/05/18at 00:43; Start 03/04/18 at 14:15 Acetaminophen/ Butalbital/ Caffeine (Fioricet) 1 tab PRN Q6HRS PRN PO MIGRAINE HEADACHE Last administered on 03/05/18at 22:53; Start 03/04/18 at 14:00 Diphenhydramine HCl (Benadryl) 25 mg PRN Q6HRS PRN IVP ITCHING Last administered on 03/06/18at 03:42; Start 03/04/18 at 14:00 Albuterol Sulfate (Ventolin) 2.5 mg PRN Q6HRS PRN NEB SHORTNESS OF BREATH; Start 03/04/18 at 14:15 Acetaminophen/ Hydrocodone Bitart (Lortab 5/325) 1 tab PRN Q6HRS PRN PO PAIN Last administered on 03/05/18at 14:04; Start 03/05/18 at 11:15 Morphine Sulfate (Morphine 2mg Syringe) 2 mg PRN Q2HR PRN IV PAIN Last administered on 03/05/18at 15:57; Start 03/05/18 at 15:45; Stop 03/05/18 at 19:46 ; Status DC Morphine Sulfate (Morphine 4mg Syringe) 2 mg PRN Q2HR PRN IV PAIN Last administered on 03/06/18at 10:25; Start 03/05/18 at 20:00 Regadenoson (Lexiscan) 0.4 mg 1X ONCE IV ; Start 03/06/18 at 09:00; Stop at 09:01; Status DC Active Scripts Active Reported Gabapentin 100 Mg Capsule 200 Mg PO TID LAST DOSE GIVEN: DATE: TIME: NEXT DOSE DUE: DATE: TIME: Proair Hfa Inhaler (Albuterol Sulfate) 8.5 Gm Hfa.aer.ad 1 Puff INH PRN Q6HRS PRN LAST DOSE GIVEN: DATE: TIME: NEXT DOSE DUE: DATE: TIME: Miralax (Polyethylene Glycol 3350) 17 Gm Powd.pack 17 Gm PO PRN DAILY PRN LAST DOSE GIVEN: DATE: TIME: NEXT DOSE DUE: DATE: TIME: Klonopin (Clonazepam) 1 Mg Tablet 1 Mg PO TID LAST DOSE GIVEN: DATE: TIME: NEXT DOSE DUE: DATE: TIME: Prozac (Fluoxetine Hcl) 40 Mg Capsule 40 Mg PO DAILY LAST DOSE GIVEN: DATE: TIME: NEXT DOSE DUE: DATE: TIME: Promethazine Hcl 25 Mg Tablet 25 Mg PO PRN Q8HRS PRN LAST DOSE GIVEN: DATE: TIME: NEXT DOSE DUE: DATE: TIME: Tizanidine HCl 2 Mg Tablet 2 Mg PO PRN Q8HRS PRN LAST DOSE GIVEN: DATE: TIME: NEXT DOSE DUE: DATE: TIME: Vitals/I & O Vital Sign - Last 24 Hours 03/05/18 03/05/18 03/05/18 03/05/18 15:00 15:08 15:57 16:43 Temp 97.1 Pulse 82 Resp 16 B/P (MAP) 112/76 (88) Pulse Ox 96 98 98 98 O2 Delivery Room Air Room Air Room Air Room Air 03/05/18 03/05/18 03/05/18 03/05/18 20:00 20:10 20:17 22:54 Temp 98.2 Pulse 76 Resp 18 18 18 B/P (MAP) 104/72 (83) Pulse Ox 98 95 95 O2 Delivery Room Air Room Air Room Air 03/05/18 03/06/18 03/06/18 03/06/18 23:52 01:49 04:28 05:00 Pulse 71 Resp 18 18 16 18 B/P (MAP) 116/87 (97) Pulse Ox 98 98 95 O2 Delivery Room Air Room Air 03/06/18 03/06/18 03/06/18 03/06/18 05:54 08:00 08:29 09:06 Temp 97.9 Pulse 70 Resp 16 B/P (MAP) 102/67 (79) Pulse Ox 95 95 95 O2 Delivery Room Air Room Air Room Air Room Air 03/06/18 10:25 Pulse Ox 95 O2 Delivery Room Air Intake and Output 03/05/18 03/05/18 03/06/18 15:00 23:00 07:00 Intake Total 240 ml 500 ml 520 ml Balance 240 ml 500 ml 520 ml MICHELLE LYONS APRN Mar 06, 2018 11:18
--- NOTE | 2018-03-06 11:29 | CARD ---
MR#: [id number] Date of Study: 03/06/2018 Ordering Physician: MICHELLE LYONS, Referring Physician: EDDI VALERA, Tech: EMILIA Wisdom APPROVED REPORT EXAM: Two-dimensional and M-mode echocardiogram with Doppler and color Doppler. Other Information Quality : Fair Technically limited study due to breast implants. INDICATION Chest Pain Migraine Headache 2D DIMENSIONS Left Atrium(2D)3.1 (1.6-4.0cm)IVSd1.0 (0.7-1.1cm) Aortic Root(2D)2.6 (2.0-3.7cm)LVDd3.9 (3.9-5.9cm) LVOT Diameter2.1 (1.8-2.4cm)PWd0.9 (0.7-1.1cm) LVDs2.8 (2.5-4.0cm)FS (%) 29.8 % SV38.8 mlLVEF(%)57.6 (>50%) Aortic Valve AoV Peak Galileo.106.9cm/Alfredo Peak GR.4.6mmHg LVOT Peak Galileo.64.8cm/sAVA (VMAX)2.17cm2 Mitral Valve MV E Bypuapzq31.7cm/sMV DECEL GAOB670as MV A Eczjckkz34.5cm/sE/A Ratio1.7 LEFT VENTRICLE The left ventricle is normal size. There is normal left ventricular wall thickness. The left ventricu lar systolic function is normal and the ejection fraction is within normal range. The Ejection Fracti on is 55-60%. There is normal LV segmental wall motion. RIGHT VENTRICLE The right ventricle is normal size. There is normal right ventricular wall thickness. The right ventr icular systolic function is normal. ATRIA The left atrium size is normal. The right atrium size is normal. The interatrial septum is intact wit h no evidence for an atrial septal defect or patent foramen ovale as noted on 2-D or Doppler imaging. AORTIC VALVE The aortic valve is trileaflet. The aortic valve is mildly calcified. Doppler and Color Flow revealed trace aortic regurgitation. There is no significant aortic valvular stenosis. MITRAL VALVE The mitral valve is normal in structure and function. There is no mitral valve stenosis. Doppler and Color Flow revealed no mitral valve regurgitation noted. TRICUSPID VALVE The tricuspid valve is normal in structure and function. Doppler and Color Flow revealed trace tricus pid regurgitation. There is no tricuspid valve stenosis. PULMONIC VALVE The pulmonic valve is not well visualized. Doppler and Color Flow revealed trace pulmonic valvular re gurgitation. There is no pulmonic valvular stenosis. GREAT VESSELS The aortic root is normal in size. The IVC is normal in size and collapses >50% with inspiration. PERICARDIAL EFFUSION There is no pleural effusion. There is no evidence of significant pericardial effusion. Critical Notification Critical Value: No <Conclusion> The left ventricular systolic function is normal and the ejection fraction is within normal range. Th e Ejection Fraction is 55-60%. There is normal LV segmental wall motion. Signed by : Alex Malave, Electronically Approved : 03/06/2018 11:28:25
[2018-03-06 11:35] VITALS: BP 125/88
--- NOTE | 2018-03-06 13:23 | PDOC ---
PROGRESS NOTES Diagnosis Problem Problems Medical Problems: (1) Anxiety Status: Acute (2) Chest pain Status: Acute (3) Head ache Status: Acute Assessment Problems Medical Problems: (1) Anxiety Status: Acute (2) Chest pain Status: Acute (3) Head ache Status: Acute 1. Chest pain - CO ruled out, no acute EKG changes. No ASA secondary to allergy. No beta judit at this time as blood pressure is borderline. Echo reveals normal LVEF and wall motion. MPI today. 2. Accelerated hypertension - likely secondary to pain. blood pressure controlled now. normal echo. 3. Migranes - per PCP, Neuro OK for discharge from CV standpoint if MPI normal. Subjective Seen during MPI. No new complaints. Nursing reports continued complaints of pain and frequent requests for pain medications. No palpitations, lightheadedness or syncope. Breathing easy. Objective Vital Signs Date Time Temp Pulse Resp B/P (MAP) Pulse Ox O2 Delivery O2 Flow Rate FiO2 03/06/18 11:35 97.4 104 20 125/88 (100) 98 03/06/18 11:20 Room Air Intake and Output 03/06/18 07:00 Intake Total 1260 ml Balance 1260 ml Intake Oral 1260 ml # Voids 6 Abdomen: Normal bowel sounds, Soft, No tenderness Heart: Regular rate, Normal S1, Normal S2 Extremities: No cyanosis, No edema, Normal pulses General: Alert, Oriented X3, Cooperative, No acute distress HEENT: Atraumatic, EOMI Lungs: Clear to auscultation, Normal air movement Neuro: Normal speech Psych/Mental Status: Mental status NL, Mood NL Review of Relevant I have reviewed the following items leif (where applicable) has been applied. Labs Laboratory Tests Test 03/05/18 06:22 White Blood Count 5.3 x10^3/uL (4.0-11.0) Red Blood Count 3.91 x10^6/uL (3.50-5.40) Hemoglobin 12.2 g/dL (12.0-15.5) Hematocrit 36.1 % (36.0-47.0) Mean Corpuscular Volume 92 fL (79-100) Mean Corpuscular Hemoglobin 31 pg (25-35) Mean Corpuscular Hemoglobin Concent 34 g/dL (31-37) Red Cell Distribution Width 13.4 % (11.5-14.5) Platelet Count 266 x10^3/uL (140-400) Sodium Level 140 mmol/L (136-145) Potassium Level 4.1 mmol/L (3.5-5.1) Chloride Level 101 mmol/L (98-107) Carbon Dioxide Level 32 mmol/L (21-32) Anion Gap 7 (6-14) Blood Urea Nitrogen 15 mg/dL (7-20) Creatinine 0.8 mg/dL (0.6-1.0) Estimated GFR (Cockcroft-Gault) 78.7 BUN/Creatinine Ratio 19 (6-20) Glucose Level 83 mg/dL (70-99) Calcium Level 8.8 mg/dL (8.5-10.1) Total Bilirubin 0.3 mg/dL (0.2-1.0) Aspartate Amino Transf (AST/SGOT) 21 U/L (15-37) Alanine Aminotransferase (ALT/SGPT) 39 U/L (14-59) Alkaline Phosphatase 146 U/L (46-116) Total Protein 7.0 g/dL (6.4-8.2) Albumin 3.7 g/dL (3.4-5.0) Albumin/Globulin Ratio 1.1 (1.0-1.7) Triglycerides Level 117 mg/dL (0-150) Cholesterol Level 256 mg/dL (0-200) LDL Cholesterol, Calculated 161 mg/dL (0-100) VLDL Cholesterol, Calculated 23 mg/dL (0-40) Non-HDL Cholesterol Calculated 184 mg/dL (0-129) HDL Cholesterol 72 mg/dL (40-60) Cholesterol/HDL Ratio 3.0 Microbiology 03/03/18 Urine Culture - Final, Complete 03/03/18 Urine Culture Result 1 (CHANDAN) - Final, Complete Medications Current Medications Lactated Ringer's 1,000 ml @ 1,000 mls/hr 1X ONCE IV Last administered on 03/03at 22:24; Start 03/03/18 at 21:30; Stop 03/03/18 at 22:29; Status DC Valproic Acid 500 mg/Sodium Chloride 55 ml @ 55 mls/hr Q8HRS IV ; Start 03/03/18 at 22:00; Status UNV Ondansetron HCl (Zofran Odt) 8 mg 1X ONCE PO Last administered on 03/03/18at 22: 24; Start 03/03/18 at 21:30; Stop 03/03/18 at 21:54; Status DC Sumatriptan Succinate (Imitrex) 6 mg 1X ONCE SQ Last administered on 03/03/18at 22:24; Start 03/03/18 at 21:30; Stop 03/03/18 at 21:54; Status DC Valproic Acid 500 mg/Sodium Chloride 55 ml @ 55 mls/hr ONCE ONCE IV Last administered on 03/03/18at 22:25; Start 03/03/18 at 22:00; Stop 03/03/18 at 22:59; Status DC Valproic Acid 500 mg/Sodium Chloride 55 ml @ 55 mls/hr Q8HRS IV ; Start at 06:00; Stop 03/05/18 at 11:06; Status DC Sodium Chloride 50 ml @ As Directed STK-MED ONCE .ROUTE ; Start 03/03/18 at 22:14 ; Stop 03/03/18 at 22:15; Status DC Valproic Acid (Depacon) 500 mg STK-MED ONCE IV ; Start 03/03/18 at 22:15; Stop at 22:16; Status DC Diphenhydramine HCl (Benadryl) 50 mg 1X ONCE IVP Last administered on at 23:35; Start 03/03/18 at 22:30; Stop 03/03/18 at 22:33; Status DC Lorazepam (Ativan) 2 mg 1X ONCE IV Last administered on 03/03/18at 23:35; Start 03/03/18 at 23:00; Stop 03/03/18 at 23:01; Status DC Morphine Sulfate (Morphine 2mg Syringe) 2 mg 1X ONCE IV ; Start 03/03/18 at 23: 15; Stop 03/03/18 at 23:17; Status DC Morphine Sulfate (Morphine 4mg Syringe) 4 mg STK-MED ONCE .ROUTE ; Start at 23:49; Stop 03/03/18 at 23:50; Status DC Morphine Sulfate (Morphine 4mg Syringe) 2 mg 1X ONCE IV Last administered on at 23:54; Start 03/03/18 at 23:45; Stop 03/03/18 at 23:51; Status DC Morphine Sulfate (Morphine 4mg Syringe) 2 mg PRN Q2HR PRN IV PAIN Last administered on 03/05/18 10:19; Start 03/04/18 at 01:00; Stop 03/05/18 at 11:06 ; Status DC Albuterol Sulfate (Ventolin Hfa) 1 puff PRN Q6HRS PRN INH SHORTNESS OF BREATH; Start 03/04/18 at 14:00; Stop 03/04/18 at 14:14; Status DC Gabapentin (Neurontin) 200 mg TID PO Last administered on 03/06/18at 11:19; Start 03/04/18 at 14:00 Clonazepam (KlonoPIN) 1 mg TID PO Last administered on 03/06/18 11:19; Start 03/04/18 at 14:00 Fluoxetine HCl (PROzac) 40 mg DAILY PO Last administered on 03/06/18 11:19; Start 03/05/18 at 09:00 Polyethylene Glycol (miraLAX) 17 gm PRN DAILY PRN PO CONSTIPATION; Start at 09:00 Tizanidine HCl (Zanaflex) 2 mg PRN Q8HRS PRN PO MUSCLE SPASMS Last administered on 03/05/18at 00:43; Start 03/04/18 at 14:15 Acetaminophen/ Butalbital/ Caffeine (Fioricet) 1 tab PRN Q6HRS PRN PO MIGRAINE HEADACHE Last administered on 03/05/18at 22:53; Start 03/04/18 at 14:00 Diphenhydramine HCl (Benadryl) 25 mg PRN Q6HRS PRN IVP ITCHING Last administered on 03/06/18at 03:42; Start 03/04/18 at 14:00 Albuterol Sulfate (Ventolin) 2.5 mg PRN Q6HRS PRN NEB SHORTNESS OF BREATH; Start 03/04/18 at 14:15 Acetaminophen/ Hydrocodone Bitart (Lortab 5/325) 1 tab PRN Q6HRS PRN PO PAIN Last administered on 03/05/18at 14:04; Start 03/05/18 at 11:15 Morphine Sulfate (Morphine 2mg Syringe) 2 mg PRN Q2HR PRN IV PAIN Last administered on 03/05/18at 15:57; Start 03/05/18 at 15:45; Stop 03/05/18 at 19:46 ; Status DC Morphine Sulfate (Morphine 4mg Syringe) 2 mg PRN Q2HR PRN IV PAIN Last administered on 03/06/18at 10:25; Start 03/05/18 at 20:00 Regadenoson (Lexiscan) 0.4 mg 1X ONCE IV Last administered on 03/06/18at 09:00 ; Start 03/06/18 at 09:00; Stop 03/06/18 at 09:01; Status DC Active Scripts Active Reported Gabapentin 100 Mg Capsule 200 Mg PO TID LAST DOSE GIVEN: DATE: TIME: NEXT DOSE DUE: DATE: TIME: Proair Hfa Inhaler (Albuterol Sulfate) 8.5 Gm Hfa.aer.ad 1 Puff INH PRN Q6HRS PRN LAST DOSE GIVEN: DATE: TIME: NEXT DOSE DUE: DATE: TIME: Miralax (Polyethylene Glycol 3350) 17 Gm Powd.pack 17 Gm PO PRN DAILY PRN LAST DOSE GIVEN: DATE: TIME: NEXT DOSE DUE: DATE: TIME: Klonopin (Clonazepam) 1 Mg Tablet 1 Mg PO TID LAST DOSE GIVEN: DATE: TIME: NEXT DOSE DUE: DATE: TIME: Prozac (Fluoxetine Hcl) 40 Mg Capsule 40 Mg PO DAILY LAST DOSE GIVEN: DATE: TIME: NEXT DOSE DUE: DATE: TIME: Promethazine Hcl 25 Mg Tablet 25 Mg PO PRN Q8HRS PRN LAST DOSE GIVEN: DATE: TIME: NEXT DOSE DUE: DATE: TIME: Tizanidine HCl 2 Mg Tablet 2 Mg PO PRN Q8HRS PRN LAST DOSE GIVEN: DATE: TIME: NEXT DOSE DUE: DATE: TIME: Vitals/I & O Vital Sign - Last 24 Hours 03/05/18 03/05/18 03/05/18 03/05/18 15:00 15:08 15:57 16:43 Temp 97.1 Pulse 82 Resp 16 B/P (MAP) 112/76 (88) Pulse Ox 96 98 98 98 O2 Delivery Room Air Room Air Room Air Room Air 03/05/18 03/05/18 03/05/18 03/05/18 20:00 20:10 20:17 22:54 Temp 98.2 Pulse 76 Resp 18 18 18 B/P (MAP) 104/72 (83) Pulse Ox 98 95 95 O2 Delivery Room Air Room Air Room Air 03/05/18 03/06/18 03/06/18 03/06/18 23:52 01:49 04:28 05:00 Pulse 71 Resp 18 18 18 B/P (MAP) 116/87 (97) Pulse Ox 98 98 95 O2 Delivery Room Air Room Air 03/06/18 03/06/18 03/06/18 03/06/18 05:54 08:00 08:29 10:25 Temp 97.9 Pulse 70 Resp 16 B/P (MAP) 102/67 (79) Pulse Ox 95 95 95 O2 Delivery Room Air Room Air Room Air Room Air 03/06/18 03/06/18 11:20 11:35 Temp 97.4 Pulse 104 Resp 20 B/P (MAP) 125/88 (100) Pulse Ox 95 98 O2 Delivery Room Air Intake and Output 03/05/18 03/05/18 03/06/18 15:00 23:00 07:00 Intake Total 240 ml 500 ml 520 ml Balance 240 ml 500 ml 520 ml MICHELLE LYONS PERINATAL BREASTFEEDING ASSISTANT Mar 06, 2018 13:23
--- NOTE | 2018-03-06 13:26 | RAD ---
MR#: [id number] Date of Study: 03/06/2018 Ordering Physician: MICHELLE DALAL, Referring Physician: MARC BRYANT Tech: RT Tito (R) (N) APPROVED REPORT Test Type: Pharmacological Stress Nurse/Tech: Kevin Dalal Test Indications: CP Cardiac History: No known cardiac Medications: See EHR Medical History: See Electronic Medical Record Resting Heart Rate: 77 bpm Resting Blood Pressure: 116/80mmHg Pretest Chest Pain: None Pharm. Details Pharmacologic stress testing was performed using 0.4mg per 5ml of regadenoson given intravenously ove r 7-10 seconds. Stress Symptoms Dyspnea POST EXERCISE Max HR: 116 bpm Max Blood Pressure: 123/76mmHg Blood Pressure response to exercise: Normal blood pressure response during stress. Heart Rate response to exercise: normal Chest Pain: No. Arrhythmia: No. ST Change: No. INTERPRETATION Stress EKG Conclusion: No Acute EKG changes Imaging Protocol IMAGE PROTOCOL: Rest Tc-99m/stress Tc-99m 1 day Rest: Stress: Viability: Radiopharm.Tc99m [id number] Sestamibi [id number] 34mCi Duration 20min. 15min. Img Date 03/06/2018 03/06/2018 Inj-Img [id number]. 60min. Rest Admin Site:IV - Right HandAdministrator: RT Tito (R)(N) Stress Admin Site: IV - Right HandAdministrator: RT Tito (R)(N) STRESS DATA End Diast. Vol.59.0mlAv. Heart Rate96.0bpm LVEDV index BSA1.0mlCardiac Output0.1L/min End Syst. Vol.10.0mlCO Index BSA4.7L/min LVESV index BSA0.0mlMyocardial Xuil739.0g Eject. Lrztoxsc38.0% Stress Rates Pk. Fill Rate4.45EDV/secLVtime Pk. Fill 167.14msec Pk. Empty Rate6.17ESV/secLVtime Pk. Ukcoc233.96msec 1/3 Pk. Fill1.10EDV/sec Stress Scores Regional WT1.00Summed WT5.00 Regional WM0.00Summed WM3.00 The rest and stress images show normal perfusion, normal contraction and thickening. LV Perf. Quant 17 Seg. SSS1.00 17 Seg. SRS2.00 17 Seg. SDS0.00 Stress Defect Extent (% LAD)1.30Rest Defect Extent (% LAD)10.00Rev. Defect Extent (% LAD)0.00 Stress Defect Extent (% LCX) 0.00Rest Defect Extent (% LCX)0.00Rev. Defect Extent (% LCX)0.00 Stress Defect Extent (% RCA)0.00Rest Defect Extent (% RCA)0.00Rev. Defect Extent (% RCA)0.00 Stress Defect Extent (% YUMIKO)2.60Rest Defect Extent (% YUMIKO)5.90Rev. Defect Extent (% YUMIKO)0.00 Other Information Quality:Fair Risk Assessment: Low Risk Conclusion 1. No evidence of EKG changes with stress testing. 2. Normal perfusion at stress/rest. 3. Low risk study. 4. EF > 60%. Signed by : Alex Malave, Electronically Approved : 03/06/2018 13:24:59
[2018-03-06] MEDS ORDERED: HYDR-2758 PO (13:44)
--- NOTE | 2018-03-06 15:43 | NUR ---
Discharge Note: ABIDA CHINCHILLA [address] Discharge instructions and discharge home medications reviewed with PATIENT and a copy given. All questions have been answered and understanding verbalized. The following instructions and handouts were given: MEDICATIONS, FOLLOW UP INSTRUCTIONS, AND EDUCATIONAL HANDOUTS AND PRESCRIPTIONS GIVEN. Discontinued lines and drains: PERIPHERAL IV DISCONTINUED WITH NO COMPLICATIONS. Patient discharged to HOME with [facility]OU[facility] via PRIVATE VEHICLE.
--- NOTE | 2018-03-06 15:48 | DS ---
DATE OF DISCHARGE: 03/06/2018 HOSPITAL COURSE: The patient is a 43-year-old female patient who was admitted originally on 03/04/2018 with severe headache. Apparently after she received Imitrex, she developed chest pain and was admitted to rule out myocardial infarction. She was seen in consultation by the radio officer as well as neurologist. She had 3 sets of cardiac enzymes and that ruled out myocardial infarction as well as echocardiogram, which showed that her left ventricular systolic function, ejection fraction was normal with a normal left ventricular segmental wall motion. She also underwent a nuclear stress test, which basically showed that there was no evidence of EKG changes with stress testing, normal perfusion at stress and rest, low risk study. Ejection fraction of more than 60%. She was seen by the neurologist, Dr. Hurtado who basically diagnosed her with a tension headache and as all her lab work and imaging studies are within acceptable range, her CT scan was normal, a decision was made to discharge her home to follow with her primary care at the [facility]. PHYSICAL EXAMINATION: GENERAL: When I examined her this morning, she was resting slightly propped up in bed, in no apparent respiratory distress, pale, but no jaundice, cyanosis, lymphadenopathy or thyromegaly. No jugular venous distention. No limb edema. VITAL SIGNS: Her heart rate was 104, blood pressure 125/88, temperature was 97.4, respiratory rate 20, and oxygen saturation was 98%. HEAD, EYES, EARS, NOSE AND THROAT: Normocephalic, atraumatic. NECK: Supple. HEART: Showed normal first and second heart sounds with no gallop, rub or murmur. CHEST: Clear to auscultation. No crepitation or rhonchi. ABDOMEN: Distended, soft, nontender. NEUROLOGIC: She was awake, alert, responding appropriately. All cranial nerves intact. She moves all her extremities without difficulty. She ambulates without assistance or assistive devices. LABORATORY DATA: Showed a white cell count of 5300, hemoglobin 12.2, hematocrit 36, MCV 92, and platelet count of 266,000. Her serum sodium was 140, potassium 4.1, chloride 101, bicarbonate 32, anion gap of 7, BUN 15, creatinine 0.8, estimated GFR was 78 mL per minute. Her glucose was 83, calcium was 8.8. Total bilirubin, AST, ALT were normal. Alkaline phosphatase slightly elevated. Total protein 7, albumin 3.7. Her serum triglycerides 117, total cholesterol at 256, LDL cholesterol 161, VLDL was 23, and HDL cholesterol was 72, the ratio was 3. Her TSH was 2.863. DISCHARGE MEDICATIONS: She was discharged home to continue on Percocet and Lortab 5/325 one tablet q. 6 hours p.r.n. for 5 days, albuterol sulfate 1 puff every 6 hours, clonazepam 1 mg 3 times a day, fluoxetine for Prozac 40 mg daily, gabapentin 200 mg 3 times a day, polyethylene glycol 17 grams daily, promethazine 25 mg every 8 hours, tizanidine 2 mg every 8 hours. FINAL DISCHARGE DIAGNOSES: Severe tension headache, chest pain, myocardial infarction ruled out, depression, anxiety. EDDI VALERA MD DR: FAITH/celena JOB#: [id number] / [id number]
== END 2018-03-06 15:45 | disposition home or self-care (01) | DRG 103 ==
LOC: ER 20:59 → 1 SOUTH 03-04 01:46
PROVIDERS: ADMIT Internal Medicine; ATTEND Internal Medicine
DX: G44.209 Tension-type headache, unspecified, not intractable (principal); G43.909 Migraine, unspecified, not intractable, without status migrainosus; R07.89 Other chest pain; F32.9 Major depressive disorder, single episode, unspecified; F41.9 Anxiety disorder, unspecified; I10 Essential (primary) hypertension; J45.909 Unspecified asthma, uncomplicated; G47.00 Insomnia, unspecified; G47.9 Sleep disorder, unspecified; Z80.3 Family history of malignant neoplasm of breast; Z82.49 Family history of ischemic heart disease and other diseases of the circulatory system; Z82.61 Family history of arthritis; Z87.891 Personal history of nicotine dependence; Z90.49 Acquired absence of other specified parts of digestive tract; Z90.710 Acquired absence of both cervix and uterus; Z98.82 Breast implant status; Z98.51 Tubal ligation status; Z90.722 Acquired absence of ovaries, bilateral; Z88.8 Allergy status to other drugs, medicaments and biological substances
CPT/HCPCS: 36415; 70450; 78452; 80048; 80053; 80061; 80307; 81001; 82553; 83735; 84443; 84484; 85007; 85025; 85027; 85610; 85651; 85730; 87086; 93005; 93017; 93306; 96365; 96372; 96374; 96375; 96376; A9500; J1200; J2060; J2270; J2785; J3030; J3490; J7120; Q0162; 99285-25; G0479

== ENCOUNTER 2018-03-09 12:02 | Emergency (ER) | payer OTHER ==
[~2018-03-09] VITALS: Ht 154.9 cm; Wt 63.5 kg
[~2018-03-09 12:02] MED LIST changes: +ALBU8.5H8 INH; +CLON1TAB PO; +FLUO40CA9 PO; +GABA-585 PO; +POLY17PO5 PO; +PROM25TA10 PO; +[UNRECOGNIZED DRUG - CODE] PO
[2018-03-09 12:38] LABS: BASO # 0.1 x10^3/uL (0.0-0.2); BASO % 1 % (0-3); EOS # 0.2 x10^3/uL (0.0-0.7); EOS % 3 % (0-3); HEMATOCRIT 38.5 % (36.0-47.0); HEMOGLOBIN 12.9 g/dL (12.0-15.5); LYMPH # 1.4 x10^3/uL (1.0-4.8); LYMPH % 22 % (24-48); MEAN CORPUSCULAR HEMOGLOBIN 31 pg (25-35); MEAN CORPUSCULAR HGB CONC 33 g/dL (31-37); MEAN CORPUSCULAR VOLUME 92 fL (79-100); MONO # 0.6 x10^3/uL (0.0-1.1); MONO % 10 % (0-9); NEUT # 4.1 x10^3uL (1.8-7.7); NEUT % 64 % (31-73); PLATELET COUNT 277 x10^3/uL (140-400); RED BLOOD COUNT 4.19 x10^6/uL (3.50-5.40); RED CELL DISTRIBUTION WIDTH 13.4 % (11.5-14.5); WHITE BLOOD COUNT 6.4 x10^3/uL (4.0-11.0)
[2018-03-09] MEDS ORDERED: ORPHENADRINE CITRATE 60 MG/2 ML VIAL. IV ONE (13:00)
--- NOTE | 2018-03-09 13:06 | PHYS DOC ---
Past History Past Medical History: Anxiety, Asthma, Depression, Endometriosis, Migraines Past Surgical History: Appendectomy, Cholecystectomy, Hysterectomy, Oophorectomy Alcohol Use: Sober Drug Use: None Adult General Chief Complaint Chief Complaint: CHEST PAIN [facility] HPI 43-year-old female patient complaining of intermittent episodes of left lower chest pain for the last 1 week getting worse with movement and activity and last almost all day as a sharp pain with radiation to her back and shoulder blade and jaw. She states the pain associated with shortness of breath, dizziness, palpitation rated her pain 9/10. Patient was admitted on March 04 and discharged home 2 days ago with unremarkable findings and instructed to follow up with her primary care physician but patient states she was not able to get appointment with [facility]. Patient denies smoking cigarettes. Patient has family history of coronary artery disease and personal history of anxiety without history of diabetes, dyslipidemia, coronary artery disease and hypertension. Review of Systems Review of Systems Constitutional: Denies fever or chills [] Eyes: Denies change in visual acuity, redness, or eye pain [] HENT: Denies nasal congestion or sore throat [] Respiratory: Denies cough or shortness of breath [] Cardiovascular: No additional information not addressed in HPI [] GI: Denies abdominal pain, nausea, vomiting, bloody stools or diarrhea [] : Denies dysuria or hematuria [] Musculoskeletal: Denies back pain or joint pain [] Integument: Denies rash or skin lesions [] Neurologic: Denies headache, focal weakness or sensory changes [] Endocrine: Denies polyuria or polydipsia [] All other systems were reviewed and found to be within normal limits, except as documented in this note. Allergies Allergies Allergies Coded Allergies Type Severity Reaction Last Updated Verified NSAIDS (Non-Steroidal Anti-Inflamma Allergy Severe 03/13/17 Yes aspirin Allergy Severe 03/13/17 Yes metoclopramide Allergy Mild anxiety 03/03/18 Yes prochlorperazine Allergy Mild anxiety 03/03/18 Yes Physical Exam Physical Exam Constitutional: Well nourished, mild distress, non-toxic appearance, anxious with hyperventilation. [] HENT: Normocephalic, atraumatic, bilateral external ears normal, oropharynx moist, no oral exudates, nose normal. [] Eyes: PERRLA, EOMI, conjunctiva normal, no discharge. [] Neck: Normal range of motion, no tenderness, supple, no stridor. [] Cardiovascular:Heart rate regular rhythm, no murmur [] Lungs & Thorax: Bilateral breath sounds clear to auscultation, reproducible left lower chest wall pain [] Abdomen: Bowel sounds normal, soft, no tenderness, no masses, no pulsatile masses. [] Skin: Warm, dry, no erythema, no rash. [] Back: No tenderness, no CVA tenderness. [] Extremities: No tenderness, no cyanosis, no clubbing, ROM intact, no edema. [] Neurologic: Alert and oriented X 3, normal motor function, normal sensory function, no focal deficits noted. [] Psychologic: Anxious, judgement normal, mood normal. [] Current Patient Data Vital Signs Vital Signs Date Time Temp Pulse Resp B/P (MAP) Pulse Ox O2 Delivery O2 Flow Rate FiO2 03/09/18 12:47 89 20 131/77 (95) 97 Room Air 03/09/18 12:02 98.0 Lab Results Laboratory Tests Test 03/09/18 12:25 White Blood Count 6.4 x10^3/uL (4.0-11.0) Red Blood Count 4.19 x10^6/uL (3.50-5.40) Hemoglobin 12.9 g/dL (12.0-15.5) Hematocrit 38.5 % (36.0-47.0) Mean Corpuscular Volume 92 fL (79-100) Mean Corpuscular Hemoglobin 31 pg (25-35) Mean Corpuscular Hemoglobin Concent 33 g/dL (31-37) Red Cell Distribution Width 13.4 % (11.5-14.5) Platelet Count 277 x10^3/uL (140-400) Neutrophils (%) (Auto) 64 % (31-73) Lymphocytes (%) (Auto) 22 % (24-48) L Monocytes (%) (Auto) 10 % (0-9) H Eosinophils (%) (Auto) 3 % (0-3) Basophils (%) (Auto) 1 % (0-3) Neutrophils # (Auto) 4.1 x10^3uL (1.8-7.7) Lymphocytes # (Auto) 1.4 x10^3/uL (1.0-4.8) Monocytes # (Auto) 0.6 x10^3/uL (0.0-1.1) Eosinophils # (Auto) 0.2 x10^3/uL (0.0-0.7) Basophils # (Auto) 0.1 x10^3/uL (0.0-0.2) D-Dimer (Anca) 0.23 mg/L (0.00-0.50) Troponin I Quantitative < 0.017 ng/mL (0-0.055) EKG EKG EKG interpreted by me. EKG at 1208 showed normal sinus rhythm at rate of 98, poor R-wave progress in anteroseptal leads, no acute ST and T-wave abnormalities [] Radiology/Procedures Radiology/Procedures [] Course & Med Decision Making Course & Med Decision Making Pertinent Labs studies reviewed. (See chart for details) Evaluation of patient in ER showed 43-year-old male patient with complaining of chest pain for 7 days with recent hospitalization for the same problem. She was very anxious at arrival to ER and asking for pain medication frequently. Patient had unremarkable EKG, d-dimer, cardiac enzymes, lipase. Patient states that her pain did not get better with Norflex and 1 dose of Lortab was given. Patient asking for prescription of Lortab for home but she already had Percocet as her home medication. Patient had drug-seeking behavior and was upset about her care in the emergency room because of not getting prescription for narcotic pain medication. Dr. Marina informed me that he does not have anything more to do for this patient and she had morphine every 2 hours during her hospitalization. Patient instructed to follow with her primary care physician or emergency room at [facility] as needed. Dragon Disclaimer Dragon Disclaimer This electronic medical record was generated, in whole or in part, using a voice recognition dictation system. Departure Departure: Impression: Primary Impression: Musculoskeletal chest pain Additional Impressions: Anxiety Abnormal liver function test Drug-seeking behavior Disposition: HOME, SELF-CARE (At 1409) Condition: STABLE Referrals: PCP,UNKNOWN (PCP) Patient Instructions: Chest Wall Pain Additional Instructions: Drink plenty of liquids Follow-up with your primary care physician in 1-2 days Return to ER if not getting better Scripts [percogesic] No Conflict Check 1 TAB PO QID PRN for PAIN, #14 Prov: MARQUITA EUGENE MD 03/09/18 Problem Qualifiers MARQUITA EUGENE MD Mar 09, 2018 13:06
[2018-03-09 13:14] LABS: ALBUMIN 3.9 g/dL (3.4-5.0); ALBUMIN/GLOBULIN RATIO 1.1 (1.0-1.7); CALCIUM 8.8 mg/dL (8.5-10.1); CREATININE 0.8 mg/dL (0.6-1.0); GFR 78.7; POTASSIUM 4.5 mmol/L (3.5-5.1); TOTAL BILIRUBIN 0.2 mg/dL (0.2-1.0); TOTAL PROTEIN 7.4 g/dL (6.4-8.2)
[2018-03-09] MEDS ORDERED: IV NORMAL SALINE 1,000ML 1,000 ML IV ONE (13:45)
[2018-03-09 14:02] VITALS: BP 108/72
[2018-03-09] MEDS ORDERED: percogesic PO (14:12)
[2018-03-09] MEDS ORDERED: HYDROcodone/APAP 5/325MG 1 TAB TABLET PO ONE (14:15)
== END 2018-03-09 14:20 | disposition home or self-care (01) ==
LOC: ER 12:02
DX: F41.9 Anxiety disorder, unspecified (principal); R94.5 Abnormal results of liver function studies; Z76.5 Malingerer [conscious simulation]; F32.9 Major depressive disorder, single episode, unspecified; J45.909 Unspecified asthma, uncomplicated; G43.909 Migraine, unspecified, not intractable, without status migrainosus; Z88.6 Allergy status to analgesic agent; Z88.8 Allergy status to other drugs, medicaments and biological substances
CPT/HCPCS: 36415; 80053; 82553; 83690; 84484; 85025; 85379; 96361; 96374; 99285; J2360; J7030

== ENCOUNTER → 2018-03-30 | Outpatient (CLI) | payer OTHER ==
[2018-03-09 14:02] VITALS: BP 108/72
[~2018-03-30] MED LIST changes: +percogesic PO
--- NOTE | 2018-03-30 11:12 | RAD ---
DATE: 03/30/2018 EXAM: DIGITAL DIAGNOSTIC BILATERAL HISTORY: Mother with history of breast cancer at age 53. Implants. Left chest wall pain for 6 months. COMPARISON: Baseline examination. This study was interpreted with the benefit of Computerized Aided Detection (CAD). The breast parenchyma is heterogeneously dense, which could reduce sensitivity of mammography. Breast parenchyma level C. FINDINGS: Bilateral CC and MLO views of the breasts were performed with implant and implant displaced views. Bilateral retropectoral saline implants are visualized. Right breast: There are no suspicious microcalcifications, masses or areas of architectural distortion. Left breast: There are no suspicious microcalcifications, masses or areas of architectural distortion. IMPRESSION: Negative bilateral mammogram. BI-RADS CATEGORY: 1 NEGATIVE RECOMMENDED FOLLOW-UP: 12M 12 MONTH FOLLOW-UP PQRS compliance statement: Patient information was entered into a reminder system with a target due date 03/30/2019 for the next mammogram. Mammography is a sensitive method for finding small breast cancers, but it does not detect them all and is not a substitute for careful clinical examination. A negative mammogram does not negate a clinically suspicious finding and should not result in delay in biopsying a clinically suspicious abnormality. "Our facility is accredited by the [employer] Mammography Program."
== END | disposition home or self-care (01) ==
LOC: MAMMO 10:20
DX: N64.89 Other specified disorders of breast (principal); I10 Essential (primary) hypertension; K21.9 Gastro-esophageal reflux disease without esophagitis
CPT/HCPCS: 77066

== ENCOUNTER 2018-04-11 16:11 | Emergency (ER) | payer OTHER ==
[~2018-04-11] VITALS: Ht 154.9 cm; Wt 68.0 kg
[2018-04-11] MEDS ORDERED: IV NORMAL SALINE 1,000ML 1,000 ML IV SCH (16:24)
[2018-04-11] MEDS ORDERED: CONTRAST GIVEN MC PRN (16:45)
[2018-04-11] MEDS ORDERED: IOHEXOL 300 MG/ML 75 ML VIAL. IV ONE (16:45)
[2018-04-11] MEDS ORDERED: ACETAMINOPHEN 500 MG TABLET PO ONE (16:45)
--- NOTE | 2018-04-11 16:51 | PHYS DOC ---
Past History Past Medical History: Anxiety, Asthma, Depression, Endometriosis, Migraines Past Surgical History: Appendectomy, Cholecystectomy, Hysterectomy, Oophorectomy Alcohol Use: Sober Drug Use: None Adult General Chief Complaint Chief Complaint: MULTIPLE COMPLAINTS [facility] HPI Patient is a 43-year-old female who presents for evaluation of multiple complaints. She states that she fell down the stairs at home today and is complaining of right chest wall pain as well as low back pain. She is very dramatic and difficulty to examine and get a history from. She states she drove herself to the ER. She says her is currently at work. She says that she was carrying laundry down stairs and lost her footing and fell down the stairs. She says she was home alone. 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 I informed the pt that her black eye is unusual injury to have from a fall at work and directly asked the patient multiple times if she feels safe at home, she states that she does, and if she is being abused, and she states that she is not being abused. Nursing staff recognized the patient from a recent visit to this emergency department for chest pain during which she was admitted to the hospital. She frequently exhibited drug-seeking behavior during that hospital stay. She states that she is a and sometimes goes to the CT and also mentions that she went to a different hospital, [facility], after she fainted at work last week. We are going to request those records be sent to us. Review of Systems Review of Systems Constitutional: Denies fever or chills [] Eyes: Denies change in visual acuity, redness, or eye pain [] HENT: Denies nasal congestion or sore throat [] Right black eye Respiratory: Denies cough or shortness of breath [] Cardiovascular: No additional information not addressed in HPI [] +right chest wall pain GI: Denies abdominal pain, nausea, vomiting, bloody stools or diarrhea [] : Denies dysuria or hematuria [] Musculoskeletal: Denies joint pain [] +low back pain Integument: Denies rash or skin lesions [] Neurologic: Denies headache, focal weakness or sensory changes [] Endocrine: Denies polyuria or polydipsia [] All other systems were reviewed and found to be within normal limits, except as documented in this note. Current Medications Current Medications Current Medications Medications (Trade) Dose Ordered Sig/Samantha Start Time Stop Time Status Last Admin Dose Admin Acetaminophen (Tylenol) 1,000 mg 1X ONCE 04/11/18 16:30 04/11/18 16:31 UNV Sodium Chloride 1,000 ml @ 1,000 mls/hr Q1H 04/11/18 16:24 04/11/18 17:23 UNV Allergies Allergies Allergies Coded Allergies Type Severity Reaction Last Updated Verified NSAIDS (Non-Steroidal Anti-Inflamma Allergy Severe 03/13/17 Yes aspirin Allergy Severe 03/13/17 Yes metoclopramide Allergy Mild anxiety 03/03/18 Yes prochlorperazine Allergy Mild anxiety 03/03/18 Yes Physical Exam Physical Exam Constitutional: Well developed, well nourished, no acute distress, non-toxic appearance. [] HENT: Normocephalic, atraumatic, bilateral external ears normal, oropharynx moist, no oral exudates, nose normal. [] Ecchymosis around right eye, appears several days old Eyes: PERRLA, EOMI, conjunctiva normal, no discharge. [] Neck: Normal range of motion, no tenderness, supple, no stridor. [] Cardiovascular:Heart rate regular rhythm, no murmur [] Lungs & Thorax: Bilateral breath sounds clear to auscultation [] right chest wall tenderness present, no deformity/ecchymosis, no subcutaneous emphysema Abdomen: Bowel sounds normal, soft, no tenderness, no masses, no pulsatile masses. [] Skin: Warm, dry, no erythema, no rash. [] Back: No tenderness, no CVA tenderness. [] no focal tenderness noted Extremities: No tenderness, no cyanosis, no clubbing, ROM intact, no edema. [] Neurologic: Alert and oriented X 3, normal motor function, normal sensory function, no focal deficits noted. [] Psychologic: Affect normal, judgement normal, mood normal. [] Anxious, very dramatic EKG EKG NSR, rate of 69, no acute ischemic findings, no STEMI, normal axis Radiology/Procedures Radiology/Procedures [address] [address] IMAGING REPORT Signed PATIENT: ABIDA CHINCHILLA ACCOUNT: [id number] : 1975 LOCATION: ER AGE: 43 SEX: F EXAM STATUS: REG ER ORD. PHYSICIAN: TRICIA GIRARD DO REASON: fall down stairs, ecchymosis around right eye PROCEDURE: CT HEAD AND MAXILLOFACIAL WO Indication: Multiple falls. Bruising and swelling about right eye. Pain Technique: Noncontrast CT head was obtained. CT maxillofacial includes axial images and coronal and sagittal reformatted images. Comparison CT head is from March 03, 2018. One or more of the following individualized dose reduction techniques were utilized for this examination: 1. Automated exposure control 2. Adjustment of the mA and/or kV according to patient size 3. Use of iterative reconstruction technique Findings: Head: The ventricles are normal in size and configuration. There is no acute intracranial hemorrhage or extra-axial fluid collection. There is no mass effect or midline shift. Reese-white differentiation is preserved. There is no depressed skull fracture. Maxillofacial: There is no orbital fracture. Zygomatic arches are intact. Pterygoid plates are intact. Nasal bones are intact. Mandible is intact. Temporomandibular relationship is maintained. There is no hemosinus. The paranasal sinuses and mastoid air cells are clear. Orbital contents are unremarkable. Small scalp hematoma is noted superior to the right orbit. IMPRESSION: 1. No acute intracranial findings. 2. Negative for maxillofacial fracture. Electronically signed by: Dwayne Pérez MD (04/11/2018 5:09 PM) [facility] DICTATED AND SIGNED BY: DWAYNE PÉREZ MD DATE: 04/11/181705 CC: TRICIA GIRARD DO; COLT BANKS MD ~ [address] [address] IMAGING REPORT Signed PATIENT: ABIDA CHINCHILLA ACCOUNT: [id number] : 1975 LOCATION: ER AGE: 43 SEX: F EXAM STATUS: REG ER ORD. PHYSICIAN: TRICIA GIRARD DO REASON: states fall down stairs, hit head PROCEDURE: CT CERVICAL SPINE WO CONTRAST Indication: Multiple falls. Pain. Fall downstairs. Technique: Axial images and coronal and sagittal reformatted images are provided. No comparison is available. One or more of the following individualized dose reduction techniques were utilized for this examination: 1. Automated exposure control 2. Adjustment of the mA and/or kV according to patient size 3. Use of iterative reconstruction technique Findings: There is no fracture or dislocation. Prevertebral soft tissues are within normal limits. Craniovertebral junction is unremarkable. Mild degenerative changes are greatest at C5-C6, no definite high-grade canal or foraminal compromise at any level. Lymph nodes along the cervical chains are presumed reactive. Lung apices are clear. IMPRESSION: Negative for an acute fracture or dislocation in the cervical spine. Mild degenerative changes most notably at C5-C6. Electronically signed by: Dwayne Pérez MD (04/11/2018 5:06 PM) [facility] DICTATED AND SIGNED BY: DWAYNE PÉREZ MD DATE: 04/11/18 170 CC: TRICIA GIRARD DO; COLT BANKS MD ~ [place] [address] IMAGING REPORT Signed PATIENT: ABIDA CHINCHILLA ACCOUNT: [id number] : 1975 LOCATION: ER AGE: 43 SEX: F EXAM STATUS: REG ER ORD. PHYSICIAN: TRICIA GIRARD DO REASON: states fall down stairs, hit head PROCEDURE: CT CHEST ABD PELVIS W/CONTRAST Indication:MULTIPLE FALLS, SEVERE RIGHT SIDE CHEST PAIN RADIATING DOWN RIGHT SIDE OF BODY TECHNIQUE: CT chest, abdomen and pelviswith IV contrast with multiplanar reformats. COMPARISON: None FINDINGS: Heart is normal in size. No pericardial or pleural effusion. Bilateral breast implants. No axillary, mediastinal or hilar adenopathy. No pneumothorax. No focal consolidation in the lungs. Liver, spleen, pancreas, adrenals and kidneys are within normal limits. Status post cholecystectomy. No pneumoperitoneum. No bowel obstruction. Large amount of stool is seen in the colon. Uterus is surgically absent. Urinary bladder within normal limits. No free pelvic fluid or ascites. No retroperitoneal or pelvic adenopathy. No suspicious bony lesion. IMPRESSION: 1. No acute traumatic findings. 2. Large amount of colonic stool burden, patient may be constipated. Electronically signed by: Gil Villalta DO (04/11/2018 5:19 PM) [facility] DICTATED AND SIGNED BY: GIL VILLALTA DO DATE: 04/11/18 1711 CC: TRICIA GIRARD DO; COLT BANKS MD ~ [address] [address] IMAGING REPORT Signed PATIENT: ABIDA CHINCHILLA ACCOUNT: [id number] : 1975 LOCATION: ER AGE: 43 SEX: F EXAM STATUS: REG ER ORD. PHYSICIAN: TRICIA GIRARD DO REASON: FALL DOWN STAIRS, ALL OVER BACK PAIN PROCEDURE: CT LUMBAR SPINE RECONSTRUCTION Indication: Multiple falls down stairs. Back pain all over. TECHNIQUE: CT of the thoracic and lumbar spine without IV contrast with multiplanar reformats COMPARISON: None FINDINGS: Thoracic spine: The thoracic spine is in normal anatomic alignment. No compression deformities. Intervertebral disc spaces are maintained with no productive changes. Facet joints are in normal anatomic alignment. No acute fractures. Visualized lungs are clear. Lumbar spine: There are 5 lumbar type vertebral bodies. Lumbar spine is in normal anatomic alignment. No intervertebral disc space narrowing or productive changes. Facet joints are in normal anatomic alignment. No acute fractures. IMPRESSION: No acute fractures. Electronically signed by: Gil Villalta DO (04/11/2018 5:32 PM) [facility] DICTATED AND SIGNED BY: GIL VILLALTA DO DATE: 04/11/18 1720 CC: TRICIA GIRARD DO; COLT BANKS MD ~ [address] [address] IMAGING REPORT Signed PATIENT: ABIDA CHINCHILLA ACCOUNT: [id number] : 1975 LOCATION: ER AGE: 43 SEX: F EXAM STATUS: REG ER ORD. PHYSICIAN: TRICIA GIRARD DO REASON: FALL DOWN STAIRS, ALL OVER BACK PAIN PROCEDURE: CT THORACIC SPINE RECONSTRUCT Indication: Multiple falls down stairs. Back pain all over. TECHNIQUE: CT of the thoracic and lumbar spine without IV contrast with multiplanar reformats COMPARISON: None FINDINGS: Thoracic spine: The thoracic spine is in normal anatomic alignment. No compression deformities. Intervertebral disc spaces are maintained with no productive changes. Facet joints are in normal anatomic alignment. No acute fractures. Visualized lungs are clear. Lumbar spine: There are 5 lumbar type vertebral bodies. Lumbar spine is in normal anatomic alignment. No intervertebral disc space narrowing or productive changes. Facet joints are in normal anatomic alignment. No acute fractures. IMPRESSION: No acute fractures. Electronically signed by: Gil Villalta DO (04/11/2018 5:32 PM) [facility] DICTATED AND SIGNED BY: GIL VILLALTA DO DATE: 04/11/181719 CC: TRICIA GIRARD DO; COLT BANKS MD ~ Course & Med Decision Making Course & Med Decision Making Pertinent Labs and Imaging studies reviewed. (See chart for details) @1750 - patient informed of imaging results which are all essentially unremarkable other than showing constipation. The patient continues to exhibit some drug-seeking behavior. She has been going to multiple different medical facilities for painful complaints. Her story is changed from what she has told me versus nursing staff regarding details of her fall. I felt the patient is not being entirely truthful with me. Workup fails to reveal any emergent pathology today. The patient is stable for discharge. I did encourage the patient to follow up with her PCP in the next 1-2 days and to return to the emergency Department immediately for new or worsening symptoms. Dragon Disclaimer Dragon Disclaimer This electronic medical record was generated, in whole or in part, using a voice recognition dictation system. Departure Departure: Impression: Primary Impression: Chest wall pain Additional Impressions: Low back pain Fall down stairs Facial contusion Disposition: 01 HOME, SELF-CARE Condition: STABLE Referrals: COLT BANKS MD (PCP) Patient Instructions: Chest Wall Pain, Fall Prevention and Home Safety Additional Instructions: Take the prescribed medicine as directed. Return to the ER for new or worsening symptoms. Follow-up with your doctor in the next 1-2 days. Scripts Bisacodyl (DULCOLAX) 5 Mg Tablet.dr 5 MG PO PRN DAILY PRN for CONSTIPATION, #20 TAB 0 Refills Prov: TRICIA GIRARD DO 04/11/18 Tramadol Hcl (ULTRAM) 50 Mg Tablet 50 MG PO PRN Q6HRS PRN for PAIN, #20 TAB Prov: TRICIA GIRARD DO 04/11/18 Docusate Sodium (COLACE) 100 Mg Capsule 1 CAP PO BID, #20 CAP Prov: TRICIA GIRARD DO 04/11/18 Problem Qualifiers TRICIA GIRARD DO Apr 11, 2018 16:51
[2018-04-11 16:55] LABS: BASO % 1 % (0-3); EOS # 0.1 x10^3/uL (0.0-0.7); EOS % 1 % (0-3); HEMATOCRIT 37.3 % (36.0-47.0); HEMOGLOBIN 12.6 g/dL (12.0-15.5); LYMPH # 0.9 x10^3/uL (1.0-4.8); LYMPH % 15 % (24-48); MEAN CORPUSCULAR HEMOGLOBIN 31 pg (25-35); MEAN CORPUSCULAR HGB CONC 34 g/dL (31-37); MEAN CORPUSCULAR VOLUME 92 fL (79-100); MONO # 0.4 x10^3/uL (0.0-1.1); MONO % 6 % (0-9); NEUT % 78 % (31-73); PLATELET COUNT 290 x10^3/uL (140-400); RED BLOOD COUNT 4.06 x10^6/uL (3.50-5.40); RED CELL DISTRIBUTION WIDTH 13.2 % (11.5-14.5); WHITE BLOOD COUNT 6.4 x10^3/uL (4.0-11.0)
--- NOTE | 2018-04-11 17:09 | RAD ---
Indication: Multiple falls. Pain. Fall downstairs. Technique: Axial images and coronal and sagittal reformatted images are provided. No comparison is available. One or more of the following individualized dose reduction techniques were utilized for this examination: 1. Automated exposure control 2. Adjustment of the mA and/or kV according to patient size 3. Use of iterative reconstruction technique Findings: There is no fracture or dislocation. Prevertebral soft tissues are within normal limits. Craniovertebral junction is unremarkable. Mild degenerative changes are greatest at C5-C6, no definite high-grade canal or foraminal compromise at any level. Lymph nodes along the cervical chains are presumed reactive. Lung apices are clear. IMPRESSION: Negative for an acute fracture or dislocation in the cervical spine. Mild degenerative changes most notably at C5-C6. Electronically signed by: Dwayne Pérez MD (04/11/2018 5:06 PM) [facility]
[2018-04-11 17:11] LABS: ALBUMIN 4.3 g/dL (3.4-5.0); ALBUMIN/GLOBULIN RATIO 1.3 (1.0-1.7); CALCIUM 9.4 mg/dL (8.5-10.1); CREATININE 0.7 mg/dL (0.6-1.0); GFR 91.8; POTASSIUM 4.2 mmol/L (3.5-5.1); TOTAL BILIRUBIN 0.3 mg/dL (0.2-1.0); TOTAL PROTEIN 7.6 g/dL (6.4-8.2)
--- NOTE | 2018-04-11 17:13 | RAD ---
Indication: Multiple falls. Bruising and swelling about right eye. Pain Technique: Noncontrast CT head was obtained. CT maxillofacial includes axial images and coronal and sagittal reformatted images. Comparison CT head is from March 03, 2018. One or more of the following individualized dose reduction techniques were utilized for this examination: 1. Automated exposure control 2. Adjustment of the mA and/or kV according to patient size 3. Use of iterative reconstruction technique Findings: Head: The ventricles are normal in size and configuration. There is no acute intracranial hemorrhage or extra-axial fluid collection. There is no mass effect or midline shift. Reese-white differentiation is preserved. There is no depressed skull fracture. Maxillofacial: There is no orbital fracture. Zygomatic arches are intact. Pterygoid plates are intact. Nasal bones are intact. Mandible is intact. Temporomandibular relationship is maintained. There is no hemosinus. The paranasal sinuses and mastoid air cells are clear. Orbital contents are unremarkable. Small scalp hematoma is noted superior to the right orbit. IMPRESSION: 1. No acute intracranial findings. 2. Negative for maxillofacial fracture. Electronically signed by: Dwayne Pérez MD (04/11/2018 5:09 PM) [facility]
--- NOTE | 2018-04-11 17:23 | RAD ---
Indication:MULTIPLE FALLS, SEVERE RIGHT SIDE CHEST PAIN RADIATING DOWN RIGHT SIDE OF BODY TECHNIQUE: CT chest, abdomen and pelviswith IV contrast with multiplanar reformats. COMPARISON: None FINDINGS: Heart is normal in size. No pericardial or pleural effusion. Bilateral breast implants. No axillary, mediastinal or hilar adenopathy. No pneumothorax. No focal consolidation in the lungs. Liver, spleen, pancreas, adrenals and kidneys are within normal limits. Status post cholecystectomy. No pneumoperitoneum. No bowel obstruction. Large amount of stool is seen in the colon. Uterus is surgically absent. Urinary bladder within normal limits. No free pelvic fluid or ascites. No retroperitoneal or pelvic adenopathy. No suspicious bony lesion. IMPRESSION: 1. No acute traumatic findings. 2. Large amount of colonic stool burden, patient may be constipated. Electronically signed by: Gil Villalta DO (04/11/2018 5:19 PM) [facility]
--- NOTE | 2018-04-11 17:35 | RAD ---
Indication: Multiple falls down stairs. Back pain all over. TECHNIQUE: CT of the thoracic and lumbar spine without IV contrast with multiplanar reformats COMPARISON: None FINDINGS: Thoracic spine: The thoracic spine is in normal anatomic alignment. No compression deformities. Intervertebral disc spaces are maintained with no productive changes. Facet joints are in normal anatomic alignment. No acute fractures. Visualized lungs are clear. Lumbar spine: There are 5 lumbar type vertebral bodies. Lumbar spine is in normal anatomic alignment. No intervertebral disc space narrowing or productive changes. Facet joints are in normal anatomic alignment. No acute fractures. IMPRESSION: No acute fractures. Electronically signed by: Gil Villalta DO (04/11/2018 5:32 PM) [facility]
[2018-04-11] MEDS ORDERED: DOCU-109 PO (17:56)
[2018-04-11] MEDS ORDERED: BISA-42 PO (17:56)
[2018-04-11] MEDS ORDERED: TRAM-48 PO (17:56)
[2018-04-11 18:00] VITALS: BP 135/82
--- NOTE | 2018-04-11 18:13 | NUR ---
UPON DISCHARGE PATIENT APPEARED TO STRUGGLE WALKING. ONCE SHE REACHED THE EXIT DOOR SHE STRAIGHTENED UP AND WALKED QUICKLY WITH NO DIFFICULTY. THIS WAS WITNESSED BY NURSING [employer]Y PLAN SELLING DISTRIBUTOR LIZA AND COMMERCIAL LENDER KRISTI. @6525
--- NOTE | 2018-04-11 18:26 | EKG ---
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
== END 2018-04-11 18:10 | disposition home or self-care (01) ==
LOC: ER 16:11
DX: S00.11XA Contusion of right eyelid and periocular area, initial encounter (principal); R07.89 Other chest pain; M54.5 Low back pain; J45.909 Unspecified asthma, uncomplicated; F41.9 Anxiety disorder, unspecified; F32.9 Major depressive disorder, single episode, unspecified; G43.909 Migraine, unspecified, not intractable, without status migrainosus; Z90.49 Acquired absence of other specified parts of digestive tract; Z90.710 Acquired absence of both cervix and uterus; Z90.721 Acquired absence of ovaries, unilateral; Z88.6 Allergy status to analgesic agent; Z88.8 Allergy status to other drugs, medicaments and biological substances; W10.9XXA Fall (on) (from) unspecified stairs and steps, initial encounter; Y93.89 Activity, other specified; Y99.8 Other external cause status; Y92.89 Other specified places as the place of occurrence of the external cause
CPT/HCPCS: 36415; 70450; 70486; 71260; 72125; 74177; 80053; 85025; 93005; 99285; G0480; Q9967; J7030

== ENCOUNTER 2018-09-15 19:53 | Emergency (ER) | payer OTHER ==
[~2018-09-15] VITALS: Ht 162.6 cm; Wt 68.0 kg
[~2018-09-15 19:53] MED LIST changes: +ALBU2.5V8 INH; -ALBU8.5H8 INH; +BISA-42 PO; +DOCU-109 PO; +HYDR-2155 PO; -HYDR-2758 PO; +HYDR-3165 PO; -HYDR-971 PO; +TRAM-48 PO
--- NOTE | 2018-09-15 20:32 | PHYS DOC ---
Past History Past Medical History: Anxiety, Asthma, Depression, Endometriosis, Migraines, Other Past Surgical History: Appendectomy, Cholecystectomy, Hysterectomy, Oophorectomy, Other Alcohol Use: Rarely Drug Use: None Adult General Chief Complaint Chief Complaint: ANXIETY/PANIC ATTACK HPI HPI Patient is a 43 year old female who presents with complaint of chest pain. Patient states that her symptoms started shortly prior to arrival. The patient states that she was attempting to refill her anxiety medication but states that her normal pharmacy did not have the medication in stock at this time. She states that she then went to the [facility] where he states she was told that her condition was not emergency and that they would not be able to refill her medication there. Patient states suddenly she started having sharp pains to her chest that radiated to her jaw and the back of her neck. She notes that she has had history of similar symptoms in the past but states that her pain is more intense and is still present at this time. Patient rates her pain as 8 out of 10. Patient has history of hypertension. Denies any personal history of coronary artery disease, however she states that there is family history for coronary artery disease as her mother had a heart attack near the age of 50. Denies any history of smoking. Patient has allergy to NSAIDs and thus did not take aspirin. Denies any associated shortness of breath, vomiting, or diaphoresis. Review of Systems Review of Systems Constitutional: Denies fever or chills [] Eyes: Denies change in visual acuity, redness, or eye pain [] HENT: Denies nasal congestion or sore throat [] Respiratory: Denies cough or shortness of breath [] Cardiovascular: Chest pain, denies edema[] GI: Denies abdominal pain, nausea, vomiting, bloody stools or diarrhea [] : Denies dysuria or hematuria [] Musculoskeletal: Denies back pain or joint pain [] Integument: Denies rash or skin lesions [] Neurologic: Tingling to the fingertips bilaterally, denies focal weakness or sensory changes [] All other systems were reviewed and found to be within normal limits, except as documented in this note. Allergies Allergies Allergies Coded Allergies Type Severity Reaction Last Updated Verified NSAIDS (Non-Steroidal Anti-Inflamma Allergy Severe 03/13/17 Yes aspirin Allergy Severe 03/13/17 Yes metoclopramide Allergy Mild anxiety 03/03/18 Yes prochlorperazine Allergy Mild anxiety 03/03/18 Yes Physical Exam Physical Exam Constitutional: Alert, afebrile, appears anxious. [] HENT: Normocephalic, atraumatic, bilateral external ears normal, oropharynx moist, no oral exudates, nose normal. [] Eyes: PERRLA, EOMI, conjunctiva normal, no discharge. [] Neck: Normal range of motion, no tenderness, supple, no stridor. [] Cardiovascular:Heart rate regular rhythm, no murmur [] Lungs & Thorax: Bilateral breath sounds clear to auscultation [] Abdomen: Bowel sounds normal, soft, no tenderness, no masses, no pulsatile masses. [] Skin: Warm, dry, no erythema, no rash. [] Back: No tenderness, no CVA tenderness. [] Extremities: No tenderness, no cyanosis, no clubbing, ROM intact, no edema. [] Neurologic: Alert and oriented X 3, normal motor function, normal sensory function, no focal deficits noted. [] Current Patient Data Vital Signs Vital Signs Date Time Temp Pulse Resp B/P (MAP) Pulse Ox O2 Delivery O2 Flow Rate FiO2 09/15/18 20:00 97.8 94 16 94 Room Air Lab Results Laboratory Tests Test 09/15/18 20:30 09/15/18 21:13 09/15/18 23:45 White Blood Count 6.5 x10^3/uL Red Blood Count 4.15 x10^6/uL Hemoglobin 12.7 g/dL Hematocrit 37.5 % Mean Corpuscular Volume 90 fL Mean Corpuscular Hemoglobin 31 pg Mean Corpuscular Hemoglobin Concent 34 g/dL Red Cell Distribution Width 14.2 % Platelet Count 274 x10^3/uL Neutrophils (%) (Auto) 69 % Lymphocytes (%) (Auto) 20 % Monocytes (%) (Auto) 9 % Eosinophils (%) (Auto) 2 % Basophils (%) (Auto) 1 % Neutrophils # (Auto) 4.5 x10^3uL Lymphocytes # (Auto) 1.3 x10^3/uL Monocytes # (Auto) 0.6 x10^3/uL Eosinophils # (Auto) 0.1 x10^3/uL Basophils # (Auto) 0.0 x10^3/uL D-Dimer (Anca) 0.28 mg/L Sodium Level 140 mmol/L Potassium Level 3.7 mmol/L Chloride Level 101 mmol/L Carbon Dioxide Level 26 mmol/L Anion Gap 13 Blood Urea Nitrogen 12 mg/dL Creatinine 0.8 mg/dL Estimated GFR (Cockcroft-Gault) 78.7 BUN/Creatinine Ratio 15 Glucose Level 92 mg/dL Calcium Level 9.5 mg/dL Magnesium Level 1.8 mg/dL Total Bilirubin 0.3 mg/dL Aspartate Amino Transf (AST/SGOT) 31 U/L Alanine Aminotransferase (ALT/SGPT) 68 U/L Alkaline Phosphatase 164 U/L Creatine Kinase 86 U/L Creatine Kinase MB (Mass) < 0.5 ng/mL Creatine Kinase MB Relative Index 0.6 % Troponin I Quantitative < 0.017 ng/mL < 0.017 ng/mL PW-Emq-N-Type Natriuretic Peptide 22 pg/mL Total Protein 7.8 g/dL Albumin 4.3 g/dL Albumin/Globulin Ratio 1.2 Urine Collection Type Unknown Urine Color Straw Urine Clarity Clear Urine pH 6.0 Urine Specific [place] 1.015 Urine Protein Neg Urine Glucose (UA) Neg mg/dL Urine Ketones (Stick) Neg mg/dL Urine Blood Neg Urine Nitrite Neg Urine Bilirubin Neg Urine Urobilinogen Dipstick 0.2 mg/dL Urine Leukocyte Esterase Neg Urine RBC 0 /HPF Urine WBC Occ /HPF Urine Squamous Epithelial Cells Occ /LPF Urine Bacteria 0 /HPF Urine Opiates Screen Neg Urine Methadone Screen Neg Urine Barbiturates Neg Urine Phencyclidine Screen Neg Urine Amphetamine/Methamphetamine Neg Urine Benzodiazepines Screen Neg Urine Cocaine Screen Neg Urine Cannabinoids Screen Neg Urine Ethyl Alcohol Neg Current Medications Medications (Trade) Dose Ordered Sig/Samantha Route PRN Reason Start Time Stop Time Status Last Admin Dose Admin Lorazepam (Ativan) 1 mg 1X ONCE IV 09/15/18 21:00 09/15/18 21:01 DC 09/15/18 20:46 Sodium Chloride 1,000 ml @ 1,000 mls/hr Q1H IV 09/15/18 21:00 09/15/18 21:59 DC 09/15/18 20:46 Acetaminophen (Tylenol) 650 mg 1X ONCE PO 09/15/18 22:30 09/15/18 22:31 DC 09/15/18 22:02 Lorazepam (Ativan) 1 mg 1X ONCE IV 09/15/18 22:30 12/22/18 22:31 DC 09/15/18 22:03 Iohexol (Omnipaque 350 Mg/ml) 100 ml 1X ONCE IV 09/15/18 22:30 09/15/18 22:31 DC 09/15/18 22:30 Info (Do NOT chart on this entry -- for MONITORING) 1 each PRN DAILY PRN MC SEE COMMENTS 09/15/18 22:15 09/16/18 01:40 DC Buspirone HCl (Buspar) 5 mg 1X ONCE PO 09/16/18 01:00 09/16/18 01:04 DC 09/16/18 01:02 Acetaminophen/ Hydrocodone Bitart (Lortab 5/325) 1 tab 1X ONCE PO 09/16/18 01:00 09/16/18 01:04 DC 09/16/18 01:02 EKG EKG Interpreted by me: Heart rate 95, sinus rhythm, normal intervals, normal axis, no acute ST/T-wave abnormalities present[] Radiology/Procedures Radiology/Procedures [address] [address] IMAGING REPORT Signed PATIENT: ABIDA CHINCHILLA ACCOUNT: [id number] : 1975 LOCATION: ER AGE: 43 SEX: F EXAM STATUS: REG ER ORD. PHYSICIAN: KARISHMA YUSUF MD REASON: chest pain PROCEDURE: PORTABLE CHEST 1V Indication:Chest pain. Hx right 3rd and 4th rib fx a month ago. TECHNIQUE:Portable AP chest X-ray COMPARISON:None FINDINGS: Heart is normal in size. Lungs are clear. No pneumothorax or pleural effusion. Nondisplaced right fifth and sixth rib fractures seen. IMPRESSION: No acute pulmonary process. Electronically signed by: Gil Villalta DO (09/15/2018 9:07 PM) [facility] DICTATED AND SIGNED BY: GIL VILLALTA DO DATE: 09/15/182103 CC: KARISHMA YUSUF MD; PCP,UNKNOWN ~ [address] [address] IMAGING REPORT Signed PATIENT: ABIDA CHINCHILLA ACCOUNT: [id number] : 1975 LOCATION: ER AGE: 43 SEX: F EXAM STATUS: REG ER ORD. PHYSICIAN: KARISHMA YUSUF MD REASON: severe chest pain radiating to back, r/o aortic dissection PROCEDURE: CT ANGIOGRAPHY CHEST CT arteriogram of the chest. HISTORY: Chest pain radiating to back CT arteriogram was done using 90 mL of Omnipaque 350 contrast. Sagittal and coronal MIP images were reconstructed. Three-dimensional images were reconstructed. Thyroid is homogeneous. There is no pleural effusion. There is a small enhancing focus in the liver which is probably a benign enhancement or a flash hemangioma. Spleen is normal. Adrenal glands are unremarkable. There is linear atelectasis in the left lung base. There is mild dependent atelectasis in the lung bases. A pulmonary embolus is not identified. There is normal enhancement of the aorta. The origins of great vessels are widely patent. There is not evidence of an aortic aneurysm or dissection. Celiac and superior mesenteric arteries in the upper abdomen are normal. There is no thoracic compression fracture. There is no mediastinal adenopathy or pleural effusion fusion. IMPRESSION: 1. No aortic dissection. 2. Negative for a pulmonary embolus. 3. Linear atelectasis left lung base with mild groundglass atelectasis in the lung bases. Without other infiltrates. Electronically signed by: Jeremias Ayala MD (09/15/2018 11:22 PM) [facility] DICTATED AND SIGNED BY: JEREMIAS AYALA MD DATE: 09/15/18 2317 CC: KARISHMA YUSUF MD; PCP,UNKNOWN ~ [] Course & Med Decision Making Course & Med Decision Making Pertinent Labs and Imaging studies reviewed. (See chart for details) Aspirin was not given to this patient due to history of allergy. Patient was given a total of 2 mg of IV Ativan, IV fluids, and Tylenol. Despite treatment, the patient states that her pain was worsening, thus prompting CT imaging to rule out intravascular pathology. Patient's CT imaging was negative. HEART score is 2, placing patient in low risk category for major acute cardiac event. In speaking with the patient, she did mention that she recently fractured 2 ribs over 1 month ago. The patient states that she feels her pain may be related to this. The patient was not having any significant symptoms until she became upset and anxious prior to arrival in the emergency department. Spoke extensively with the patient. Her main concern at this time is that she does not have her BuSpar medication on hand. She states that she took a new prescription to her pharmacy, [facility] in [place], [place], and states that they initially did not fill this prescription because they did not have a stock. For some reason, she states that they told her they would need her doctor's approval before filling her prescription. I agreed to contact the patient's pharmacy in the morning when they open to clarify the reasoning behind her not having her prescription filled. Her pain was addressed with oral hydrocodone in the emergency department. The patient voiced appreciation for assistance in helping her with her anxiety medication and felt well for discharge. Patient discharged with her in stable condition.[] Dragon Disclaimer Dragon Disclaimer This electronic medical record was generated, in whole or in part, using a voice recognition dictation system. Departure Departure: Impression: Primary Impression: Atypical chest pain Additional Impression: Anxiety Disposition: 01 HOME, SELF-CARE Condition: IMPROVED Referrals: PCP,UNKNOWN (PCP) Patient Instructions: Anxiety and Panic Attacks, Chest Pain (Nonspecific) Additional Instructions: Follow-up with your primary doctor in 3-5 days for reevaluation. Return to emergency department for any worsening symptoms. Problem Qualifiers KARISHMA YUSUF MD Sep 15, 2018 20:32
[2018-09-15 20:51] LABS: BASO % 1 % (0-3); EOS # 0.1 x10^3/uL (0.0-0.7); EOS % 2 % (0-3); HEMATOCRIT 37.5 % (36.0-47.0); HEMOGLOBIN 12.7 g/dL (12.0-15.5); LYMPH # 1.3 x10^3/uL (1.0-4.8); LYMPH % 20 % (24-48); MEAN CORPUSCULAR HEMOGLOBIN 31 pg (25-35); MEAN CORPUSCULAR HGB CONC 34 g/dL (31-37); MEAN CORPUSCULAR VOLUME 90 fL (79-100); MONO # 0.6 x10^3/uL (0.0-1.1); MONO % 9 % (0-9); NEUT # 4.5 x10^3uL (1.8-7.7); NEUT % 69 % (31-73); PLATELET COUNT 274 x10^3/uL (140-400); RED BLOOD COUNT 4.15 x10^6/uL (3.50-5.40); RED CELL DISTRIBUTION WIDTH 14.2 % (11.5-14.5); WHITE BLOOD COUNT 6.5 x10^3/uL (4.0-11.0)
[2018-09-15] MEDS ORDERED: LORazepam 2 MG/ML VIAL IV ONE ×2 (21:00→22:30)
[2018-09-15] MEDS ORDERED: IV NORMAL SALINE 1,000ML 1,000 ML IV SCH (21:00)
--- NOTE | 2018-09-15 21:10 | RAD ---
Indication:Chest pain. Hx right 3rd and 4th rib fx a month ago. TECHNIQUE:Portable AP chest X-ray COMPARISON:None FINDINGS: Heart is normal in size. Lungs are clear. No pneumothorax or pleural effusion. Nondisplaced right fifth and sixth rib fractures seen. IMPRESSION: No acute pulmonary process. Electronically signed by: Gil Villalta DO (09/15/2018 9:07 PM) [facility]
[2018-09-15 21:15] LABS: ALBUMIN 4.3 g/dL (3.4-5.0); ALBUMIN/GLOBULIN RATIO 1.2 (1.0-1.7); ALK PHOS 164 U/L (46-116); ALT (SGPT) 68 U/L (14-59); ANION GAP 13 (6-14); AST (SGOT) 31 U/L (15-37); BLOOD UREA NITROGEN 12 mg/dL (7-20); BUN/CREATININE RATIO 15 (6-20); CALCIUM 9.5 mg/dL (8.5-10.1); CARBON DIOXIDE 26 mmol/L (21-32); CHLORIDE 101 mmol/L (98-107); CREATININE 0.8 mg/dL (0.6-1.0); GFR 78.7; GLUCOSE 92 mg/dL (70-99); MAGNESIUM 1.8 mg/dL (1.8-2.4); POTASSIUM 3.7 mmol/L (3.5-5.1); SODIUM 140 mmol/L (136-145); TOTAL BILIRUBIN 0.3 mg/dL (0.2-1.0); TOTAL PROTEIN 7.8 g/dL (6.4-8.2)
[2018-09-15 21:33] LABS: BILIRUBIN,URINE NEG (NEG); CLARITY,URINE CLEAR; COLOR,URINE STRAW; GLUCOSE,URINE NEG (NEG); NITRITE,URINE NEG (NEG); UROBILINOGEN,URINE 0.2 mg/dL (0.2 mg/dL)
[2018-09-15 21:34] LABS: AMPHETAMINE/METHAMPHETAMINE NEG (NEG); BARBITURATES NEG (NEG); BENZODIAZEPINES NEG (NEG); CANNABINOIDS NEG (NEG); COCAINE NEG (NEG); METHADONE NEG (NEG); OPIATES NEG (NEG); PHENCYCLIDINE NEG (NEG)
[2018-09-15 21:36] LABS: BACTERIA,URINE 0 /HPF (0-FEW); RBC,URINE 0 /HPF (0-2); SQUAMOUS EPITHELIAL CELL,UR OCC /LPF; WBC,URINE OCC /HPF (0-4)
[2018-09-15] MEDS ORDERED: CONTRAST GIVEN MC PRN (22:15)
[2018-09-15] MEDS ORDERED: ACETAMINOPHEN 325 MG TABLET PO ONE (22:30)
[2018-09-15] MEDS ORDERED: IOHEXOL 350 MG/ML 100 ML VIAL. IV ONE (22:30)
--- NOTE | 2018-09-15 23:26 | RAD ---
CT arteriogram of the chest. HISTORY: Chest pain radiating to back CT arteriogram was done using 90 mL of Omnipaque 350 contrast. Sagittal and coronal MIP images were reconstructed. Three-dimensional images were reconstructed. Thyroid is homogeneous. There is no pleural effusion. There is a small enhancing focus in the liver which is probably a benign enhancement or a flash hemangioma. Spleen is normal. Adrenal glands are unremarkable. There is linear atelectasis in the left lung base. There is mild dependent atelectasis in the lung bases. A pulmonary embolus is not identified. There is normal enhancement of the aorta. The origins of great vessels are widely patent. There is not evidence of an aortic aneurysm or dissection. Celiac and superior mesenteric arteries in the upper abdomen are normal. There is no thoracic compression fracture. There is no mediastinal adenopathy or pleural effusion fusion. IMPRESSION: 1. No aortic dissection. 2. Negative for a pulmonary embolus. 3. Linear atelectasis left lung base with mild groundglass atelectasis in the lung bases. Without other infiltrates. Electronically signed by: Jeremias Ayala MD (09/15/2018 11:22 PM) [facility]
[2018-09-16] MEDS ORDERED: busPIRone 5 MG TABLET. PO ONE (01:00)
[2018-09-16] MEDS ORDERED: HYDROcodone/APAP 5/325MG 1 TAB TABLET PO ONE (01:00)
[2018-09-16 01:17] VITALS: BP 117/83
--- NOTE | 2018-09-16 01:29 | EKG ---
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
--- NOTE | 2018-09-16 01:31 | EKG ---
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
== END 2018-09-16 01:38 | disposition home or self-care (01) ==
LOC: ER 19:53
DX: R07.89 Other chest pain (principal); F41.9 Anxiety disorder, unspecified; I10 Essential (primary) hypertension; J45.909 Unspecified asthma, uncomplicated; F32.9 Major depressive disorder, single episode, unspecified; G43.909 Migraine, unspecified, not intractable, without status migrainosus; Z88.6 Allergy status to analgesic agent; Z88.8 Allergy status to other drugs, medicaments and biological substances
CPT/HCPCS: 36415; 71045; 71275; 80053; 80307; 81001; 82553; 83735; 83880; 84484; 85025; 85379; 93005; 96374; 96376; 99284; J2060; Q9967; J7030